=== PATIENT | male | born 1985 | race Hispanic/Latino ===

== ENCOUNTER 2018-12-26 01:47 | Emergency (ER) | payer SELFPAY ==
--- NOTE | 2018-12-26 02:35 | ER ---
Nurse's Notes [facility] Name: David Chang Age: 33 yrs Sex: Male : 1985 Arrival Date: 12/26/2018 Time: 01:52 Bed 5 Private MD: Diagnosis: Impetigo, unspecified Presentation: 12/26 02:00 Presenting complaint: Patient states: "Yesterday I started to have common colds so I cc3 took NyQuil yesterday night and DayQuil the next day. When I woke up today I noticed these red lesions on my chin and forehead which aren't itchy though". Transition of care: patient was not received from another setting of care. Onset of symptoms was December 25, 2018. Risk Assessment: Do you want to hurt yourself or someone else? Patient reports no desire to harm self or others. Initial Sepsis Screen: Does the patient meet any 2 criteria? No. Patient's initial sepsis screen is negative. Does the patient have a suspected source of infection? No. Patient's initial sepsis screen is negative. Care prior to arrival: None. 02:00 Method Of Arrival: Ambulatory cc3 02:00 Acuity: BLAYNE 4 cc3 Triage Assessment: 02:00 General: Appears in no apparent distress. comfortable, Behavior is calm, cooperative, cc3 appropriate for age. Pain: Denies pain. EENT: No signs and/or symptoms were reported regarding the EENT system. Neuro: Level of Consciousness is awake, alert, obeys commands. Cardiovascular: Denies chest pain, Capillary refill < 3 seconds in bilateral fingers Patient's skin is warm and dry. Respiratory: Airway is patent Respiratory effort is even, unlabored, Respiratory pattern is regular, symmetrical. GI: Abdomen is round non-distended, Bowel sounds present X 4 quads. Abd is soft and non tender X 4 quads. : No signs and/or symptoms were reported regarding the genitourinary system. Derm: Skin is intact, is healthy with good turgor, Skin is pink, warm \\T\\ dry. normal, Rash noted that is papular, red, on chin, forehead, chest. Musculoskeletal: Circulation, motion, and sensation intact. Range of motion: intact in all extremities. Historical: - Allergies: 02:00 No Known Allergies; cc3 - Home Meds: 02:00 lisinopril 10 mg Oral tab 1 tab once daily [Active]; amlodipine 5 mg tab 1 tab once cc3 daily [Active]; losartan 100 mg oral tab 1 tab once daily [Active]; - PMHx: 02:00 Hypertension; cc3 - PSHx: 02:00 back surgery; cc3 - Immunization history:: Adult Immunizations not up to date. - Social history:: Smoking status: Patient uses tobacco products, denies chronic smoking, but will smoke occasionally. - Ebola Screening: : No symptoms or risks identified at this time. Screenin:00 Abuse screen: Denies threats or abuse. Denies injuries from another. Nutritional cc3 screening: No deficits noted. Tuberculosis screening: No symptoms or risk factors identified. Fall Risk Ambulatory Aid- None/Bed Rest/Nurse Assist (0 pts). Gait- Normal/Bed Rest/Wheelchair (0 pts) Mental Status- Oriented to own ability (0 pts). Assessment: 02:00 General: see triage assessment. cc3 02:50 Reassessment: Patient appears in no apparent distress at this time. Patient and/or cc3 family updated on plan of care and expected duration. Pain level reassessed. Patient is alert, oriented x 3, equal unlabored respirations, skin warm/dry/pink. Dr. Mcduffie discharged the patient home with prescription given. No IV cannula in situ. Patient left ER vitally stable and ambulatory. No valuables left in the patient's room. Patient denies pain at this time. Vital Signs: 02:00 BP 138 / 88; Pulse 83; Resp 15 S; Temp 98.6(O); Pulse Ox 98% on R/A; Weight 104.33 kg cc3 (R); Height 5 ft. 3 in. (160.02 cm) (R); Pain 0/10; 02:00 Body Mass Index 40.74 (104.33 kg, 160.02 cm) cc3 ED Course: 01:52 Patient arrived in ED. es 02:00 Patient has correct armband on for positive identification. Bed in low position. Call cc3 light in reach. Pulse ox on. NIBP on. 02:00 Arm band placed on right wrist. Patient notified of wait time. cc3 02:02 Romel Mcduffie MD is Attending Physician. tw4 02:10 Kacy Bhatt is Primary Nurse. cc3 02:16 Triage completed. cc3 02:50 No provider procedures requiring assistance completed. Patient did not have IV access cc3 during this emergency room visit. Administered Medications: No medications were administered Outcome: 02:35 Discharge ordered by . tw4 02:50 Discharged to home ambulatory. cc3 02:50 Condition: stable 02:50 Discharge instructions given to patient, Instructed on discharge instructions, follow up and referral plans. medication usage, Demonstrated understanding of instructions, follow-up care, medications, Prescriptions given X 1. 02:57 Patient left the ED. cc3 Signatures: Yamilex Brady Terrence, MD MD tw4 Kacy Bhatt cc3
[2018-12-26 03:32] VITALS: BP 138/88; TEMP 98.6; O2SAT 98
--- NOTE | 2018-12-27 02:57 | EDPHYS ---
Physician Documentation [facility] Name: David Chang Age: 33 yrs Sex: Male : 1985 Arrival Date: 12/26/2018 Time: 01:52 Bed 5 Private MD: ED Physician Romel Mcduffie HPI: 12/26 07:01 This 33 yrs old Male presents to ER via Ambulatory with complaints of Lesions tw4 on body. 07:01 The patient's rash thought to be caused by an unknown cause. The rash is located on the tw4 chin. The rash can be described as patchy. Onset: The symptoms/episode began/occurred yesterday. Associated signs and symptoms: Pertinent positives: itching, Pertinent negatives: burning sensation, difficulty breathing, fever, swelling of lips, swelling of throat. Severity of symptoms: At their worst the symptoms were mild in the emergency department the symptoms are unchanged. The patient has not experienced similar symptoms in the past. Historical: - Allergies: 02:00 No Known Allergies; cc3 - Home Meds: 02:00 lisinopril 10 mg Oral tab 1 tab once daily [Active]; amlodipine 5 mg tab 1 tab once cc3 daily [Active]; losartan 100 mg oral tab 1 tab once daily [Active]; - PMHx: 02:00 Hypertension; cc3 - PSHx: 02:00 back surgery; cc3 - Immunization history:: Adult Immunizations not up to date. - Social history:: Smoking status: Patient uses tobacco products, denies chronic smoking, but will smoke occasionally. - Ebola Screening: : No symptoms or risks identified at this time. ROS: 07:01 Constitutional: Negative for fever, chills, and weight loss, Eyes: Negative for injury, tw4 pain, redness, and discharge, Cardiovascular: Negative for chest pain, palpitations, and edema, Respiratory: Negative for shortness of breath, cough, wheezing, and pleuritic chest pain, Abdomen/GI: Negative for abdominal pain, nausea, vomiting, diarrhea, and constipation, Back: Negative for injury and pain, MS/Extremity: Negative for injury and deformity. 07:01 Skin: Positive for rash. Exam: 07:01 Constitutional: This is a well developed, well nourished patient who is awake, alert, tw4 and in no acute distress. Head/Face: Normocephalic, atraumatic. Chest/axilla: Normal chest wall appearance and motion. Nontender with no deformity. No lesions are appreciated. Respiratory: Lungs have equal breath sounds bilaterally, clear to auscultation and percussion. No rales, rhonchi or wheezes noted. No increased work of breathing, no retractions or nasal flaring. Abdomen/GI: Soft, non-tender, with normal bowel sounds. No distension or tympany. No guarding or rebound. No evidence of tenderness throughout. 07:01 Skin: lesion(s), pustule(s) noted. 07:01 Skin: lesion(s), located on the chin. tw4 Vital Signs: 02:00 BP 138 / 88; Pulse 83; Resp 15 S; Temp 98.6(O); Pulse Ox 98% on R/A; Weight 104.33 kg cc3 (R); Height 5 ft. 3 in. (160.02 cm) (R); Pain 0/10; 02:00 Body Mass Index 40.74 (104.33 kg, 160.02 cm) cc3 MDM: 02:02 Patient medically screened. tw4 07:01 Differential diagnosis: impetigo, varicella. Data reviewed: vital signs, nurses notes. tw4 Counseling: I had a detailed discussion with the patient and/or guardian regarding: the historical points, exam findings, and any diagnostic results supporting the discharge/admit diagnosis. Special discussion: I discussed with the patient/guardian in detail that at this point there is no indication for admission to the hospital. It is understood, however, that if the symptoms persist or worsen the patient needs to return immediately for re-evaluation. Administered Medications: No medications were administered Disposition: 12/26/18 02:35 Discharged to Home. Impression: Impetigo, unspecified. - Condition is Stable. - Discharge Instructions: Impetigo, Adult. - Prescriptions for Bactroban 2 % Topical Ointment - Apply to affected area 1 application by TOPICAL route every 12 hours; 30 gram. - Medication Reconciliation Form, Thank You Letter, Antibiotic Education, Prescription Opioid Use form. - Follow up: Private Physician; When: Upon discharge from the Emergency Department; Reason: Recheck today's complaints, Continuance of care. - Problem is new. - Symptoms are unchanged. Signatures: Romel Mcduffie MD MD tw4 Kacy Bhatt cc3 Corrections: (The following items were deleted from the chart) 02:57 02:35 12/26/2018 02:35 Discharged to Home. Impression: Impetigo, unspecified. Condition cc3 is Stable. Forms are Medication Reconciliation Form, Thank You Letter, Antibiotic Education, Prescription Opioid Use. Follow up: Private Physician; When: Upon discharge from the Emergency Department; Reason: Recheck today's complaints, Continuance of care. Problem is new. Symptoms are unchanged. tw4
== END 2018-12-26 02:57 | disposition home or self-care (01) ==
LOC: ER 01:47
DX: L01.00 Impetigo, unspecified (principal); I10 Essential (primary) hypertension; Z72.0 Tobacco use
CPT/HCPCS: 99283

== ENCOUNTER 2022-10-25 23:13 | Emergency (ER) | payer SELFPAY ==
--- OUTSIDE RECORDS SUMMARY | 2022-10-25 23:16 | XMS REPORT | Continuity of Care Document ---
:1985 Author Organization [facility] t Address [address] [place] [address] Care Team Providers Name Role Phone Unavailable Unavailable Unavailable Problems This patient has no known problems. Allergies, Adverse Reactions, Alerts This patient has no known allergies or adverse reactions. Medications This patient has no known medications. Procedures This patient has no known procedures. Encounters Start End Encounter Admission Attending Care Care Encounter Source Date/Time Date/Time Type Type Clinicians Facility Department ID 2022-05-29 2022-05-29 Outpatient [facility] [id number] Hung 15:58:44 15:58:44 [id number] F Homar 2021-12-04 2021-12-[address] [facility] [id number] Hung 10:59:36 10:59:36 1025 F Homar Results Test Description Test Time Test Comments Results Result Comments Source LIPID PANEL 2021-12-05 05:20:02 Test Item Value Reference Range Interpretation Comme nts CHOLESTEROL (test code = 2210) 392 MG/DL <200 H TRIGLYCERIDES (test code = 2232) 211 MG/DL <150 H HDL CHOLESTEROL (test code = 35 MG/DL >39 L 2220) CALC LDL CHOL (test code = 2237) 317 MG/DL <100 H NOTE: CALCULATED LDL IS BASED ON YESI-COOPER METHOD WHICHINCLUDES A DJUSTABLE TRIGLYCERIDE:VL DL CHOLESTEROL RATIO.THIS FACT OR VARIES BY MEASURED TRIGLY CERIDE AND NON-HDLCHOLESTE ROL CONCENTRATIONS WITH INCREASED CALCULATED LDL SEENIN HIGHER T RIGLYCERIDE OR LOWER NON-HDL S PECIMENS. FOR MOREINFORMATION , SEE CLIENT ANNOUNCEMENT AT [email or web address] RATIO LDL/HDL (test code = 9.06 RATIO <3.55 H 2237) COMPREHENSIVE METABOLIC [id number] 05:20:02 Test Item Value Reference Range Interpretation Comments GLUCOSE (test code = 94 MG/DL 70-99 2216) BUN (test code = 12 MG/DL 6-20 2207) CREATININE (test 0.94 MG/DL 0.80-1.40 code = 221) eGFR (2020 CKD-EPI) 108 >60 (test code = 15996) ML/MIN/1.73 CALC BUN/CREAT (test 13 RATIO 6-28 code = 2235) SODIUM (test code = 138 MEQ/L 290-934 2001) POTASSIUM (test code 4.4 MEQ/L 3.5-5.4 = 2227) CHLORIDE (test code 99 MEQ/L 95-107 = 2214) CARBON DIOXIDE (test 23 MEQ/L 19-31 code = 220) CALCIUM (test code = 9.8 MG/DL 8.5-10.5 2208) PROTEIN, TOTAL (test 7.4 G/DL 6.1-8.3 code = 2228) ALBUMIN (test code = 4.5 G/DL 3.5-5.2 2200) CALC GLOBULIN (test 2.9 G/DL 1.9-3.7 code = 2240) CALC A/G RATIO (test 1.6 RATIO 1.0-2.6 code = 223) BILIRUBIN, TOTAL 0.6 MG/DL See_Comment [Automated message] (test code = 2207) The syste m which generated this result transmitted ref erence range: <=1.2. T he reference range was not used to int erpret this result as normal/abnormal . ALKALINE PHOSPHATASE 72 U/L 40-117 (test code = 2204) AST (test code = 53 U/L 9-50 H 2217) ALT (test code = 109 U/L 5-50 H UNLESS OTH ERWISE 2218) INDICATED, ALL TESTING PERFORM [facility] [address] [place] [place] [address] [facility] DIRECTOR: YONI GOLDBERG M.D. CLIA NUMBER [id number] CAP ACCREDITATION N O. [id number]
[2022-10-25 23:56] LABS: Absolute Lymphocytes (CBC) 2.6 K/uL (0.7-4.9); Hematocrit 41.2 % (39.6-49.0); Lymphocytes % 39.8 % (15.3-44.8); MCV 80.9 fL (80-100); MPV 8.1 fL (7.6-11.3); Platelets 255 thou/uL (152-406); RBC Red Blood Cell Count 5.09 M/uL (4.33-5.43)
[2022-10-26 00:09] LABS: Protime INR 1.01
[2022-10-26 00:15] LABS: Albumin 3.5 g/dL (3.4-5.0); Bilirubin Total 0.3 mg/dL (0.2-1.0); Potassium 3.7 mEq/L (3.5-5.1); Protein, Total 6.9 g/dL (6.4-8.2)
--- NOTE | 2022-10-26 00:25 | ER ---
Nurse's Notes [facility] Name: David Chang Age: 37 yrs Sex: Male : 1985 Arrival Date: 10/25/2022 Time: 23:13 Bed 15 Private MD: Diagnosis: Epistaxis Presentation: 10/25 23:23 Initial Sepsis Screen: Does the patient meet any 2 criteria? No. Patient's initial ha1 sepsis screen is negative. Does the patient have a suspected source of infection? No. Patient's initial sepsis screen is negative. Risk Assessment: Do you want to hurt yourself or someone else? Patient reports no desire to harm self or others. Onset of symptoms was October 25, 2022. 23:23 Acuity: BLAYNE 3 [facility] 23:23 Chief complaint: Patient states: Today I have been having nose bleed. the bleeding has ha1 stopped but I wanted to have it checked because it has happened before. Also, I feel a little chest pressure. 23:47 Ebola Screen: No symptoms or risks identified at this time. [facility] 23:47 Method Of Arrival: Ambulatory [facility] 10/26 00:39 Coronavirus screen: Vaccine status:. [facility] Triage Assessment: 10/25 23:23 General: Appears uncomfortable, Behavior is cooperative. Pain: Complains of pain in ha1 chest Pain does not radiate. Pain currently is 2 out of 10 on a pain scale. Quality of pain is described as pressure, Pain began 2-3 days ago. EENT: Reports Nose bleeding . Neuro: Level of Consciousness is awake, alert, obeys commands, Oriented to person, place, time, situation. Cardiovascular: Patient's skin is warm and dry. Respiratory: Airway is patent Respiratory effort is even, unlabored, Respiratory pattern is regular, symmetrical. Derm: Skin is pink, warm \T\ dry. Musculoskeletal: Circulation, motion, and sensation intact. Historical: - Allergies: 23:49 No Known Allergies; ha1 - Home Meds: 23:49 lisinopril 10 mg Oral tab 1 tab once daily [Active]; ha1 - PMHx: 23:49 Hypertension; high cholesterol; ha1 - Immunization history:: Adult Immunizations up to date. - Social history:: Smoking status: Reported history of juuling and/or vaping. Screenin:23 [facility] ED Fall Risk Assessment (Adult) History of falling in the last 3 months, ha1 including since admission No falls in past 3 months (0 pts) Confusion or Disorientation No (0 pts) Intoxicated or Sedated No (0 pts) Impaired Gait No (0 pts) Mobility Assist Device Used No (0 pt) Altered Elimination No (0 pt) Score/Fall Risk Level 0 - 2 = Low Risk. 23:52 Abuse screen: Denies threats or abuse. Denies injuries from another. Nutritional ha1 screening: No deficits noted. Tuberculosis screening: No symptoms or risk factors identified. Assessment: 10/26 00:39 Reassessment: Patient and/or family updated on plan of care and expected duration. Pain ha1 level reassessed. Patient is alert, oriented x 3, equal unlabored respirations, skin warm/dry/pink. Vital Signs: 10/25 23:23 BP 156 / 106; Pulse 67; Resp 17 S; Temp 97.9; Pulse Ox 99% on R/A; Weight 112 kg; ha1 Height 5 ft. 7 in. ; 10/26 00:30 BP 150 / 98; Pulse 65; Resp 17 S; Pulse Ox 99% on R/A; ha1 10/25 23:23 Body Mass Index 38.67 (112.00 kg, 170.18 cm) ha1 ED Course: 10/25 23:17 Patient arrived in ED. es 23:21 Mehrdad Vo MD is Attending Physician. rt 23:23 Arm band placed on right wrist. ha1 23:23 Patient has correct armband on for positive identification. Placed in gown. Bed in low ha1 position. Call light in reach. Side rails up X 1. 23:47 Belen Narayan RN is Primary Nurse. ha1 23:49 Triage completed. ha1 23:50 Inserted saline lock: 22 gauge in right antecubital area, using aseptic technique. ha1 Blood collected. Inserted by SKYLER Greco. 10/26 00:24 Jo Ann Isidro MD is Referral Physician. rt 00:37 No provider procedures requiring assistance completed. IV discontinued, intact, ha1 bleeding controlled, No redness/swelling at site. Pressure dressing applied. 00:39 Provided Education on: follow up with Dr. Isidro. ha1 Administered Medications: No medications were administered Medication: 00:38 VIS not applicable for this client. ha1 Outcome: 00:24 Discharge ordered by . rt 00:38 Discharged to home ambulatory. ha1 00:38 Condition: stable 00:38 Discharge instructions given to patient, Instructed on discharge instructions, follow up and referral plans. Demonstrated understanding of instructions, follow-up care. 00:41 Patient left the ED. ha1 Signatures: Yamilex Brady Heidy, RN RN ha1 Mehrdad Vo MD MD rt
--- NOTE | 2022-10-26 00:25 | EDPHYS ---
Physician Documentation [facility] Name: David Chang Age: 37 yrs Sex: Male : 1985 Arrival Date: 10/25/2022 Time: 23:13 Bed 15 Private MD: ED Physician Mehrdad Vo HPI: 10/25 23:44 This 37 yrs old Male presents to ER via Unassigned with complaints of SPITING rt UP BLOOD. 23:44 Patient presents to the ED with epistaxis. He has had intermittent epistaxis for the rt past year, has not had a work-up for this. He states that the bleeding was worse today. He has since resolved. Denies any difficulty breathing, cough. Denies other acute complaints at this time, symptoms are mild in severity, no other aggravating or alleviating factors.. Historical: - Allergies: 23:49 No Known Allergies; ha1 - Home Meds: 23:49 lisinopril 10 mg Oral tab 1 tab once daily [Active]; ha1 - PMHx: 23:49 Hypertension; high cholesterol; ha1 - Immunization history:: Adult Immunizations up to date. - Social history:: Smoking status: Reported history of juuling and/or vaping. ROS: 23:44 Constitutional: Negative for fever, chills, and weight loss, Cardiovascular: Negative rt for chest pain, palpitations, and edema, Respiratory: Negative for shortness of breath, cough, wheezing, and pleuritic chest pain, Abdomen/GI: Negative for abdominal pain, nausea, vomiting, diarrhea, and constipation, MS/Extremity: Negative for injury and deformity, Skin: Negative for injury, rash, and discoloration, Neuro: Negative for headache, weakness, numbness, tingling, and seizure, Psych: Negative for depression, anxiety, suicide ideation, homicidal ideation, and hallucinations. 23:44 ENT: Positive for nose bleed, Negative for sore throat. Exam: 23:44 Constitutional: This is a well developed, well nourished patient who is awake, alert, rt and in no acute distress. Head/Face: Normocephalic, atraumatic. Neck: Trachea midline, no thyromegaly or masses palpated, and no cervical lymphadenopathy. Supple, full range of motion without nuchal rigidity, or vertebral point tenderness. No Meningismus. Chest/axilla: Normal chest wall appearance and motion. Nontender with no deformity. No lesions are appreciated. Cardiovascular: Regular rate and rhythm with a normal S1 and S2. No gallops, murmurs, or rubs. Normal PMI, no JVD. No pulse deficits. Respiratory: Lungs have equal breath sounds bilaterally, clear to auscultation and percussion. No rales, rhonchi or wheezes noted. No increased work of breathing, no retractions or nasal flaring. Abdomen/GI: Soft, non-tender, with normal bowel sounds. No distension or tympany. No guarding or rebound. No evidence of tenderness throughout. Skin: Warm, dry with normal turgor. Normal color with no rashes, no lesions, and no evidence of cellulitis. MS/ Extremity: Pulses equal, no cyanosis. Neurovascular intact. Full, normal range of motion. Neuro: Awake and alert, GCS 15, oriented to person, place, time, and situation. Cranial nerves II-XII grossly intact. Motor strength 5/5 in all extremities. Sensory grossly intact. Cerebellar exam normal. Normal gait. Psych: Awake, alert, with orientation to person, place and time. Behavior, mood, and affect are within normal limits. 23:44 ENT: Dried blood in the left nare, no active bleeding, right nares clear. 23:44 ECG was reviewed by the Attending Physician. Vital Signs: 23:23 BP 156 / 106; Pulse 67; Resp 17 S; Temp 97.9; Pulse Ox 99% on R/A; Weight 112 kg; ha1 Height 5 ft. 7 in. ; 10/26 00:30 BP 150 / 98; Pulse 65; Resp 17 S; Pulse Ox 99% on R/A; ha1 10/25 23:23 Body Mass Index 38.67 (112.00 kg, 170.18 cm) ha MDM: 10/25 23:24 Patient medically screened. rt 10/26 00:25 Differential Diagnosis Thrombocytopenia, epistaxis, clotting factor abnormalities. Data rt reviewed: vital signs, nurses notes, lab test result(s), EKG. Test considered but Not performed: CT: No trauma, CT scan of. Counseling: I had a detailed discussion with the patient and/or guardian regarding the historical points, exam findings, and any diagnostic results supporting the discharge/admit diagnosis, the presence of at least one elevated blood pressure reading (>120/80) during this emergency department visit, lab results, the need for outpatient follow up. 10/25 23:35 Order name: CBC with Diff; Complete Time: 00:16 rt 10/25 23:35 Order name: CMP; Complete Time: 00:16 rt 10/25 23:35 Order name: PT-INR; Complete Time: 00:16 rt 10/25 23:35 Order name: Ptt, Activated; Complete Time: 00:16 rt 10/25 23:35 Order name: EKG; Complete Time: 23:36 rt 10/25 23:35 Order name: EKG - Nurse/Tech; Complete Time: 23:47 rt EC10/25 22:44 Rate is 57 beats/min. Rhythm is regular, 1st Degree Block with No ectopy. QRS [place] is rt Normal. AL interval is normal. QRS interval is normal. QT interval is normal. No Q waves. T waves are Normal. No ST changes noted. Interpreted by me. Administered Medications: No medications were administered Disposition Summary: 10/26/22 00:24 Discharge Ordered Location: Home rt Problem: an ongoing problem rt Symptoms: are resolved rt Condition: Stable rt Diagnosis - Epistaxis rt Followup: rt - With: Jo Ann Isidro MD - When: 5 - 6 days - Reason: Discharge Instructions: - Discharge Summary Sheet rt - Nosebleed, Adult rt Forms: - Medication Reconciliation Form rt - Thank You Letter rt - Antibiotic Education rt - Prescription Opioid Use rt - Patient Portal Instructions rt - Leadership Thank You Letter rt Signatures: Dispatcher [employer] Belen Padilla RN RN ha1 Mehrdad Vo MD MD rt
[2022-10-26 00:56] VITALS: TEMP 97.9; O2SAT 99
[2022-10-26 00:58] VITALS: BP 150/98
--- NOTE | 2022-10-28 19:10 | EKG ---
Test Date: 2022-10-25 Test Time: 23:38:01 Drafter Castings: JANE MEASUREMENT RESULTS: Intervals: Rate: 57 OR: 210 QRSD: 96 QT: 414 QTc: 402 [place]: P: 57 OR: 210 QRS: 3 T: 13 INTERPRETIVE STATEMENTS: Sinus bradycardia with 1st degree AV block Otherwise normal ECG Compared to ECG 06/20/2015 16:49:33 First degree AV block now present Electronically Signed On 10-28-22 19:06:35 CDT by Wilfrido Dorado
== END 2022-10-26 00:41 | disposition home or self-care (01) ==
LOC: ER 23:13
DX: R04.0 Epistaxis (principal)
CPT/HCPCS: 36415; 80053; 85025; 85610; 85730; 93005; 99283

== ENCOUNTER 2023-06-02 19:06 | Emergency (ER) | payer SELFPAY ==
--- OUTSIDE RECORDS SUMMARY | 2023-06-02 19:09 | XMS REPORT | Continuity of Care Document ---
Author Name Unknown Address [address] [facility] [address] [place] [id number] [facility] thconnect Address [address] [facility] [address] [place] [address] Care Team Providers Care Retail Warehouse Supervisor Name Role Phone Unavailable Unavailable Unavailable Encounters Start Date/Time End Date/Time Encounter Type Admission Type Attending Clinicians Care Facility Care Department Encounter ID Source 2022-12-03 13:34:16 2022-12-03 13:34:16 Outpatient [facility] S[facility] [id number] 2022-11-13 09:35:49 2022-11-13 09:35:49 Outpatient [facility] S[facility] [id number] 2022-05-29 15:58:44 2022-05-29 15:58:44 Outpatient SFA SFA [id number] 2021-12-04 10:59:36 2021-12-04 10:59:36 Outpatient SFA SFA [id number] Results Test Description Test Time Test Comments Results Result Co mments Source LIPID [id number] 05:04:38* Test Item Value Reference Range Interpretation Comme nts CHOLESTEROL (test code = 2210) 377 MG/DL <200 H TRIGLYCERIDES (test code = 2232) 326 MG/DL <150 H HDL CHOLESTEROL (test code = 2220) 35 MG/DL >39 L CALC LDL CHOL (test code = 2237) 287 MG/DL <100 H NOTE: CALCULATED LDL IS BASED ON YESI-COOPER METHOD WHICHINCLUDES ADJUSTABLE TRIGLYCERIDE:VLDL CHOLESTEROL RATIO.THIS FACTOR VARIES BY MEASURED TRIGLYCERIDE AND NON-HDLCHOLESTEROL CONCENTRATIONS WITH INCREASED CALCULATED LDL SEENIN HIGHER TRIGLYCERIDE OR LOWER NON-HDL SPECIMENS. FOR MOREINFORMATION, SEE CLIENT ANNOUNCEMENT AT [email or web address] [email or web address] RATIO LDL/HDL (test code = 223) 8.20 RATIO <3.55 H COMPREHENSIVE METABOLIC [id number] 05:04:38* Test Item Value Reference Range Interpretation Comme nts GLUCOSE (test code = 7) 96 MG/DL 70-99 BUN (test code = 2207) 9 MG/DL 6-20 CREATININE (test code = 2214) 1.01 MG/DL 0.80-1.40 eGFR (2020 CKD-EPI) (test co de = 07056) 98 ML/MIN/1.73 >60 CALC BUN/CREAT (test code = 2235) 9 RATIO 6-28 SODIUM (test code = 223) 140 MEQ/L 133-146 POTASSIUM (test code = 222) 4.4 MEQ/L 3.5-5.4 CHLORIDE (test code = 2215) 101 MEQ/L 95-107 CARBON DIOXIDE (test code = 6) 24 MEQ/L 19-31 CALCIUM (test code = 220) 9.6 MG/DL 8.5-10.5 PROTEIN, TOTAL (test code = 222) 7.4 G/DL 6.1-8.3 ALBUMIN (test code = 2201) 4.7 G/DL 3.5-5.2 CALC GLOBULIN (test code = 2240) 2.7 G/DL 1.9-3.7 CALC A/G RATIO (test code = 2234) 1.7 RATIO 1.0-2.6 BILIRUBIN, TOTAL (test code = 2206) 0.7 MG/DL <=1.2 ALKALINE PHOSPHATASE (test code = 4) 81 U/L 40-117 AST (test code = 2218) 56 U/L 9-50 H ALT (test code = 2219) 125 U/L 5-50 H CBC W/AUTO DIFF WITH [id number] 03:36:02* Test Item Value Reference Range Interpretation Comme nts WBC (test code = 1001) 5.8 K/UL 3.5-11.0 RBC (test code = 1002) 5.70 M/UL 4.50-6.10 HEMOGLOBIN (test code = 1003) 15.5 G/DL 13.5-17.0 HEMATOCRIT (test code = 1004) 46.1 % 40.0-51.0 MCV (test code = 1005) 80.9 fL 80.0-99.0 MCH (test code = 1006) 27.2 PG 25.0-33.0 MCHC (test code = 1007) 33.6 G/DL 31.0-36.0 RDW (test code = 1038) 12.9 % 11.5-15.0 NEUTROPHILS (test code = 1008) 50.0 % LYMPHOCYTES (test code = 1010) 38.8 % MONOCYTES (test code = 1011) 7.5 % EOSINOPHILS (test code = 1012) 2.9 % BASOPHILS (test code = 1013) 0.3 % IMMATURE GRANULOCYTES (test code = 1036) 0.5 % NUCLEATED RBCS (test code = 1065) 0.0 /100 WBC'S See_Comment [Automated messa ge] The system which generated this result transmitted reference range: 0.0. The reference range was not used to interpret this result as normal/abnormal. PLATELET COUNT (test code = 1015) 304 K/UL 130-400 ABSOLUTE NEUTROPHILS (test code = 1066) 2.91 K/UL 1.50-7.50 ABSOLUTE LYMPHOCYTES (test code = 1067) 2.26 K/UL 1.00-4.00 ABSOLUTE MONOCYTES (test code = 1068) 0.44 K/UL 0.20-1.00 ABSOLUTE EOSINOPHILS (test code = 1040) 0.17 K/UL 0.00-0.50 ABSOLUTE BASOPHILS (test code = 1069) 0.02 K/UL 0.00-0.20 ABS IMMATURE GRANULOCYTES (test code = 1020) 0.03 K/UL 0.00-0.10 ABS NUCLEATED RBCS (test code = 63356) 0.00 K/UL 0.00-0.11 PROTHROMBIN TIME (PT)2022-11-14 02:49:27* Test Item Value Reference Range Interpretation Comme nts PROTHROMBIN TIME (PT) (test code = 1402) 13.1 SECONDS 12.5-14.7 INR (test code = 36537) 1.0 SEE BELOW CURRENT RECOMMENDATIONS ARE FOR AN INR OF 2.0-3.0 FOR ALL PATIENTS ON VITAMIN K ANTAGONISTS, EXCEPT THOSE WITH PROSTHETIC HEART VALVES, FOR WHOM INR OF 2.5-3.5 IS RECOMMENDED. UNLESS OTHERWISE INDICATED, ALL TESTING PERFORMED AT [facility] [address] [place] [address] IRRIGATION FLUME LAYER: JASKARAN WALKER M.D. CLIA NUMBER [id number] [facility] [place]. [id number] LIPID [id number] 05:20:02* Test Item Value Reference Range Interpretation Comme nts CHOLESTEROL (test code = 2210) 392 MG/DL <200 H TRIGLYCERIDES (test code = 2232) 211 MG/DL <150 H HDL CHOLESTEROL (test code = 2220) 35 MG/DL >39 L CALC LDL CHOL (test code = 2237) 317 MG/DL <100 H NOTE: CALCULATED LDL IS BASED ON YESI-COOPER METHOD WHICHINCLUDES ADJUSTABLE TRIGLYCERIDE:VLDL CHOLESTEROL RATIO.THIS FACTOR VARIES BY MEASURED TRIGLYCERIDE AND NON-HDLCHOLESTEROL CONCENTRATIONS WITH INCREASED CALCULATED LDL SEENIN HIGHER TRIGLYCERIDE OR LOWER NON-HDL SPECIMENS. FOR MOREINFORMATION, SEE CLIENT ANNOUNCEMENT AT [email or web address] [email or web address] RATIO LDL/HDL (test code = 2238) 9.06 RATIO <3.55 H COMPREHENSIVE METABOLIC [id number] 05:20:02* Test Item Value Reference Range Interpretation Comme nts GLUCOSE (test code = 2217) 94 MG/DL 70-99 BUN (test code = 2208) 12 MG/DL 6-20 CREATININE (test code = 2214) 0.94 MG/DL 0.80-1.40 eGFR (2020 CKD-EPI) (test code = 14104) 108 ML/MIN/1.73 >60 CALC BUN/CREAT (test code = 2235) 13 RATIO 6-28 SODIUM (test code = 223) 138 MEQ/L 133-146 POTASSIUM (test code = 2228) 4.4 MEQ/L 3.5-5.4 CHLORIDE (test code = 2215) 99 MEQ/L 95-107 CARBON DIOXIDE (test code = 2206) 23 MEQ/L 19-31 CALCIUM (test code = 2209) 9.8 MG/DL 8.5-10.5 PROTEIN, TOTAL (test code = 222) 7.4 G/DL 6.1-8.3 ALBUMIN (test code = 220) 4.5 G/DL 3.5-5.2 CALC GLOBULIN (test code = 2240) 2.9 G/DL 1.9-3.7 CALC A/G RATIO (test code = 2234) 1.6 RATIO 1.0-2.6 BILIRUBIN, TOTAL (test code = 2207) 0.6 MG/DL See_Comment [Automated me ssage] The system which generated this result transmitted reference range: <=1.2. The reference range was not used to interpret this result as normal/abnormal. ALKALINE PHOSPHATASE (test code = 2204) 72 U/L 40-117 AST (test code = 2218) 53 U/L 9-50 H ALT (test code = 2219) 109 U/L 5-50 H UNLESS OTHERWISE INDICATED, [facility] [address] [place] [address] IRRIGATION FLUME LAYER: YONI GOLDBERG M.D. [place] NUMBER [id number] [facility] [place]. [id number]
--- NOTE | 2023-06-02 20:12 | RAD REPORT ---
EXAM DESCRIPTION: CT - Head Brain Wo Cont - 06/02/2023 8:01 pm CLINICAL HISTORY: HEADACHE Headache, drowsiness COMPARISON: HEAD BRAIN W O CONTRAST dated 10/29/2012; HEAD BRAIN W O CONTRAST dated 03/26/2007 TECHNIQUE: All CT scans are performed using dose optimization technique as appropriate and may inclu de automated exposure control or mA/KV adjustment according to patient size. FINDINGS: No intracranial hemorrhage, hydrocephalus or extra-axial fluid collection.No areas of brai n edema or evidence of midline shift. The paranasal sinuses and mastoids are clear. The calvarium is intact. IMPRESSION: No acute intracranial abnormality.
--- NOTE | 2023-06-02 20:16 | RAD REPORT ---
EXAM DESCRIPTION: RAD - Chest Single View - 06/02/2023 8:09 pm CLINICAL HISTORY: SOB Chest pain. COMPARISON: Chest Single View dated 06/20/2015 FINDINGS: Portable technique limits examination quality. The lungs are grossly clear. The heart is normal in size. No displaced fractures. IMPRESSION: No acute intrathoracic process suspected.
[2023-06-02 20:48] LABS: Absolute Basophils 0.1 K/uL (0-0.5); Absolute Eosinophils 0.1 K/uL (0-0.5); Absolute Lymphocytes (CBC) 1.9 K/uL (0.7-4.9); Absolute Monocytes 0.5 K/uL (0.1-1.3); Absolute Neutrophil 4.7 K/uL (1.8-8.0); Basophils % 0.7 % (0-1.3); Eosinophils % 1.8 % (0-4.4); Hematocrit 51.7 % (39.6-49.0); Hemoglobin 16.9 g/dL (13.6-17.9); Lymphocytes % 26.4 % (15.3-44.8); MCH 26.2 pg (27.0-35.0); MCHC 32.6 g/dL (32.0-36.0); MCV 80.3 fL (80-100); MPV 8.9 fL (7.6-11.3); Monocytes % 6.6 % (3.3-12.3); Neutrophils % 64.5 % (41.7-73.7); Nucleated Red Blood Cells % 0.1 % (0-0); Platelets 309 thou/uL (152-406); RBC Red Blood Cell Count 6.44 M/uL (4.33-5.43); Red Cell Distribution Width 14.2 % (12.1-15.2)
[2023-06-02 20:57] LABS: PT Prothrombin Time 10.3 SECONDS (9.5-12.5); Protime INR 0.93
[2023-06-02] MEDS ORDERED: KETOROLAC 30 MG/ML INJ ONE (20:59)
[2023-06-02] MEDS ORDERED: METOCLOPRAMIDE 10 MG/2mL INJ ONE (21:00)
[2023-06-02] MEDS ORDERED: DIPHENHYDRAMINE 50 MG/ML VIAL ONE (21:00)
[2023-06-02] MEDS ORDERED: NA CHLORIDE 0.9% 1,000 ML ONE (21:00)
[2023-06-02 21:07] LABS: Anion Gap 9.8 mEq/L (5.0-15.0); Troponin High Sensitivity 31.5 pg/mL (<58.9)
[2023-06-02 21:12] LABS: Potassium 3.8 mEq/L (3.5-5.1)
--- NOTE | 2023-06-02 23:29 | EDPHYS ---
Physician Documentation [facility] Name: David Chang Age: 38 yrs Sex: Male : 1985 Arrival Date: 06/02/2023 Time: 19:06 Bed 18 Private MD: ED Physician Moreno Fisher HPI: 06/01 19:28 This 38 yrs old Male presents to ER via Ambulatory with complaints of cp Headache, Shortness Of Breath. 19:28 The patient complains of pain to the top of head. The patient describes the headache as cp aching, constant. Onset: The symptoms/episode began/occurred 3 day(s) ago. 19:28 Associated signs and symptoms: Pertinent positives: shortness of breath, intermittent cp chest pain, Pertinent negatives: fever, neck stiffness, vision changes, vomiting. Severity of symptoms: in the emergency department the pain is unchanged, despite home interventions. Patient reports PMHX significant for HTN and hyperlipidemia. On supplemental testosterone treatment and in past side effect of testosterone injections was elevated RBCs which caused similar headache. Patient concerned red blood cell count elevated. In the past donated blood which relieved headache. Historical: - Allergies: 19:26 No Known Allergies; jb4 - Home Meds: 19:26 lisinopril 10 mg Oral tab 1 tab once daily [Active]; jb4 - PMHx: 19:26 High Cholesterol; Hypertension; jb4 - PSHx: 19:26 lower back; jb4 - Immunization history:: Adult Immunizations up to date. - Infectious Disease History:: Denies. - Social history:: Smoking status: Patient denies any tobacco usage or history of. ROS: 19:30 Constitutional: Negative for body aches, chills, fever, poor PO intake, cp 19:30 Cardiovascular: Positive for chest pain, Negative for edema, palpitations, cp 19:30 Respiratory: Positive for shortness of breath, Negative for cough, wheezing, 19:30 Eyes: Negative for injury, pain, redness, and discharge, cp 19:30 Abdomen/GI: Negative for abdominal pain, vomiting, diarrhea, constipation, 19:30 : Negative for urinary symptoms, cp 19:30 Neuro: Positive for headache, Negative for dizziness, numbness, syncope, near syncope, weakness, 19:30 All other systems are negative, Exam: 19:35 Constitutional: The patient appears in no acute distress, alert, awake, cp non-diaphoretic, non-toxic, well developed, well nourished, 19:35 Head/Face: Normocephalic, atraumatic. cp 19:35 Eyes: Periorbital structures: appear normal, Pupils: equal, round, and reactive to cp light and accomodation, Extraocular movements: intact throughout, Conjunctiva: normal, no exudate, no injection, Sclera: no appreciated abnormality, Lids and lashes: appear normal, bilaterally, 19:35 ENT: External ear(s): are unremarkable, Nose: is normal, Mouth: Lips: moist, Oral mucosa: pink and intact, moist, Posterior pharynx: Airway: no evidence of obstruction, patent, 19:35 Neck: ROM/movement: is normal, is supple, without pain, no range of motions limitations, 19:35 Chest/axilla: Inspection: normal, 19:35 Cardiovascular: Rate: normal, Rhythm: regular, Edema: is not appreciated, JVD: is not appreciated, 19:35 Respiratory: the patient does not display signs of respiratory distress, Respirations: normal, no use of accessory muscles, no retractions, labored breathing, is not present, Breath sounds: are clear throughout, no decreased breath sounds, no stridor, no wheezing, 19:35 Abdomen/GI: Inspection: abdomen appears normal, Palpation: abdomen is soft and non-tender, in all quadrants, 19:35 Back: pain, is absent, ROM is normal, cp 19:35 Neuro: Orientation: to person, place \T\ time. Mentation: is normal, Motor: moves all fours, strength is normal, Sensation: is normal, 19:48 ECG was reviewed by the Attending Physician. cp Vital Signs: 19:22 BP 164 / 103; Pulse 87; Resp 16; Temp 97.1(TE); Pulse Ox 100% on R/A; Weight 106.59 kg jb4 (R); Height 5 ft. 7 in. (R); Pain 6/10; 20:31 BP 148 / 92; Pulse 76; Resp 17; Pulse Ox 100% ; jj7 21:30 BP 156 / 94; Pulse 74; Resp 16; Pulse Ox 98% ; Pain 0/10; jj7 22:40 BP 144 / 91; Pulse 67; Resp 16; Pulse Ox 99% ; Pain 0/10; jj7 23:30 BP 150 / 99; Pulse 70; Resp 21; Temp 98.3; Pulse Ox 98% ; Pain 0/10; jj7 19:22 Body Mass Index 36.80 (106.59 kg, 170.18 cm) 4 19:22 Pain Scale: Adult jb4 21:30 Pain Scale: Adult jj7 22:40 Pain Scale: Adult jj7 23:30 Pain Scale: Adult jj7 MDM: 19:19 Patient medically screened. cp 20:00 Differential diagnosis: meningoencephalitis, migraine, neoplasm, subarachnoid bleed, cp tension headache. 23:29 Data reviewed: vital signs, nurses notes, lab test result(s), EKG, radiologic studies, cp CT scan, plain films. 06/01 19:29 Order name: Basic Metabolic Panel; Complete Time: 22:02 cp 06/01 22:02 Interpretation: Normal except: NA 135; GFR 85. cp 06/01 19:29 Order name: CBC with Diff; Complete Time: 22:02 cp 06/01 22:02 Interpretation: Normal except: RBC 6.44; HCT 51.7; MCH 26.2. cp 06/01 19:29 Order name: Magnesium; Complete Time: 22:02 cp 06/01 19:29 Order name: PT-INR; Complete Time: 22:02 cp 06/01 19:29 Order name: Troponin HS; Complete Time: 22:02 cp 06/01 22:02 Interpretation: Reviewed. cp 06/01 22:04 Order name: Troponin High Sensitivity: 3 hr repeat; Complete Time: 23:29 cp 06/01 19:29 Order name: CT Head Brain wo Cont; Complete Time: 20:41 cp 06/01 19:29 Order name: XRAY Chest (1 view); Complete Time: 20:41 cp 06/01 19:29 Order name: Cardiac monitoring; Complete Time: 20:10 cp 06/01 19:29 Order name: EKG - Nurse/Tech; Complete Time: 20:10 cp 06/01 19:29 Order name: IV Saline Lock; Complete Time: 21:06 cp 06/01 19:29 Order name: Labs collected and sent; Complete Time: 20:44 cp 06/01 19:29 Order name: O2 Per Protocol; Complete Time: 20:44 cp 06/01 19:29 Order name: O2 Sat Monitoring; Complete Time: 20:45 cp 06/01 19:29 Order name: Blood Pressure Recheck; Complete Time: 20:44 cp EC:48 Rate is 86 beats/min. Rhythm is regular. PA interval is normal. QRS interval is normal. cp QT interval is normal. T waves are Inverted in leads III, aVR. Interpreted by me. Reviewed by me. Administered Medications: 21:05 Drug: Ketorolac IVP 15 mg IVP once Route: IVP; Site: right hand; jj7 21:48 Follow up: Response: Pain is decreased jj7 21:06 Drug: metoCLOPramide IVP 10 mg IVP once; over 1 to 2 minutes Route: IVP; Site: right [facility] hand; 21:49 Follow up: Response: Marked relief of symptoms; Pain is decreased jj7 21:06 Drug: diphenhydrAMINE IVP 25 mg IVP once Route: IVP; Site: right hand; jj7 21:49 Follow up: Response: Marked relief of symptoms; Pain is decreased jj7 21:06 Drug: NS 0.9% IV 1000 ml IV at 999 ml/hr Per protocol; 1000 mL bolus Route: IV; Rate: jj7 999 ml/hr; Site: right hand; 22:14 Follow up: IV Status: Completed infusion jj7 Disposition: 06/02 09:02 Co-signature as Attending Physician, Moreno Fisher MD I reviewed the patient's care rn provided by the Advanced Practice Provider and agree with the diagnosis and treatment plan. Disposition Summary: 06/02/23 23:28 Discharge Ordered Notes: Location: Home cp Problem: new cp Symptoms: have improved cp Condition: Stable cp Diagnosis - Headache cp - Chest pain, unspecified cp - Hypertensive heart disease without heart failure cp Followup: cp - With: Wilfrido Dorado MD - When: 2 - 3 days - Reason: Recheck today's complaints Discharge Instructions: - Discharge Summary Sheet cp - Nonspecific Chest Pain, Adult cp - General Headache Without Cause cp - Aspirin and Your Heart cp Forms: - Medication Reconciliation Form cp - Antibiotic Education cp - Prescription Opioid Use cp - Patient Portal Instructions cp - Leadership Thank You Letter cp Prescriptions: - Ibuprofen 800 mg Oral Tablet - take 1 tablet ORAL route every 8 hours As needed take with food; 30 tablet; cp Refills: 0, Product Selection Permitted Signatures: Dispatcher [employer] EDMS Moreno Fisher MD MD rn Clark Hutchins PA PA cp David Alonzo, RN RN jb4 Dulce Anthony RN RN jj7 Corrections: (The following items were deleted from the chart) 06/01 19:30 19:30 BASIC METABOLIC PANEL+C.LAB.BRZ ordered. EDMS EDMS 19:30 19:30 CBC+H.LAB.BRZ ordered. EDMS EDMS 19:30 19:30 MAGNESIUM+C.LAB.BRZ ordered. EDMS EDMS 19:30 19:30 PROTIME (+INR)+COAG.LAB.BRZ ordered. EDMS EDMS 19:30 19:30 Troponin High Sensitivity+C.LAB.BRZ ordered. EDMS EDMS 19:31 19:30 Chest Single View+RAD.RAD.BRZ ordered. EDMS EDMS
--- NOTE | 2023-06-02 23:29 | ER ---
Nurse's Notes [facility] Name: David Chang Age: 38 yrs Sex: Male : 1985 Arrival Date: 06/02/2023 Time: 19:06 Bed 18 Private MD: Diagnosis: Headache;Chest pain, unspecified;Hypertensive heart disease without heart failure Presentation: 06/01 19:22 Chief complaint: Patient states: I have a headache that started 3 days ago and jb4 sometimes radiates into my neck. I was short of breath yesteday but not anymore. Coronavirus screen: At this time, the client does not indicate any symptoms associated with coronavirus-19. Ebola Screen: No symptoms or risks identified at this time. Initial Sepsis Screen: Does the patient meet any 2 criteria? No. Patient's initial sepsis screen is negative. Does the patient have a suspected source of infection? No. Patient's initial sepsis screen is negative. Risk Assessment: Do you want to hurt yourself or someone else? Patient reports no desire to harm self or others. Onset of symptoms was June 02, 2023. Transition of care: patient was not received from another setting of care. 19:22 Method Of Arrival: Ambulatory jb4 19:22 Acuity: BLAYNE 3 jb4 Triage Assessment: 19:26 General: Appears in no apparent distress. comfortable, Behavior is calm, cooperative, jb4 appropriate for age. Pain: Complains of pain in top of head Pain radiates to neck Pain currently is 6 out of 10 on a pain scale. Pain began 2-3 days ago. Neuro: Level of Consciousness is awake, alert, obeys commands, Oriented to person, place, time, situation. Cardiovascular: Patient's skin is warm and dry. Respiratory: Airway is patent Respiratory effort is even, unlabored, Respiratory pattern is regular, symmetrical. Derm: Skin is intact, Skin is pink, warm \T\ dry. Musculoskeletal: Circulation, motion, and sensation intact. Range of motion: intact in all extremities. Historical: - Allergies: 19:26 No Known Allergies; jb4 - Home Meds: 19:26 lisinopril 10 mg Oral tab 1 tab once daily [Active]; jb4 - PMHx: 19:26 High Cholesterol; Hypertension; jb4 - PSHx: 19:26 lower back; jb4 - Immunization history:: Adult Immunizations up to date. - Infectious Disease History:: Denies. - Social history:: Smoking status: Patient denies any tobacco usage or history of. Screenin:50 [facility] ED Fall Risk Assessment (Adult) History of falling in the last 3 months, jj7 including since admission No falls in past 3 months (0 pts) Confusion or Disorientation No (0 pts) Intoxicated or Sedated No (0 pts) Impaired Gait No (0 pts) Mobility Assist Device Used No (0 pt) Altered Elimination No (0 pt) Score/Fall Risk Level 0 - 2 = Low Risk Oriented to surroundings, Maintained a safe environment, Educated pt \T\ family on fall prevention, incl call for assistance when getting out of bed. Abuse screen: Denies threats or abuse. Nutritional screening: No deficits noted. Tuberculosis screening: No symptoms or risk factors identified. Assessment: 19:50 General: Appears in no apparent distress. comfortable, Behavior is calm, cooperative, jj7 appropriate for age. Pain: Complains of pain in head. Neuro: Reports headache. Vital Signs: 19:22 BP 164 / 103; Pulse 87; Resp 16; Temp 97.1(TE); Pulse Ox 100% on R/A; Weight 106.59 kg jb4 (R); Height 5 ft. 7 in. (R); Pain 6/10; 20:31 BP 148 / 92; Pulse 76; Resp 17; Pulse Ox 100% ; jj7 21:30 BP 156 / 94; Pulse 74; Resp 16; Pulse Ox 98% ; Pain 0/10; jj7 22:40 BP 144 / 91; Pulse 67; Resp 16; Pulse Ox 99% ; Pain 0/10; jj7 23:30 BP 150 / 99; Pulse 70; Resp 21; Temp 98.3; Pulse Ox 98% ; Pain 0/10; jj7 19:22 Body Mass Index 36.80 (106.59 kg, 170.18 cm) jb4 19:22 Pain Scale: Adult jb4 21:30 Pain Scale: Adult jj7 22:40 Pain Scale: Adult jj7 23:30 Pain Scale: Adult jj7 ED Course: 19:10 Patient arrived in ED. mg5 19:19 Clark Hutchins PA is PHCP. cp 19:19 Moreno Fisher MD is Attending Physician. cp 19:26 Triage completed. jb4 19:26 Arm band placed on right wrist. jb4 19:32 Dulce Anthony, RN is Primary Nurse. jj7 19:48 EKG done, by technician plant and maintenance. reviewed by Clark KEEN. oe 19:50 Patient has correct armband on for positive identification. Bed in low position. Call jj7 light in reach. Provided Education on: USE OF CALL SOTO. Lights dimmed. 19:50 No provider procedures requiring assistance completed. jj7 20:02 CT Head Brain wo Cont In Process Unspecified. EDMS 20:10 XRAY Chest (1 view) In Process Unspecified. EDMS 20:43 Missed attempt(s): 20 gauge Bleeding controlled, band aid applied, catheter tip intact. oe 20:45 Basic Metabolic Panel Sent. jj7 20:45 CBC with Diff Sent. jj7 20:45 Magnesium Sent. jj7 20:45 PT-INR Sent. jj7 20:45 Troponin HS Sent. jj7 20:58 Inserted saline lock: 22 gauge in right hand, using aseptic technique. jj7 23:13 Troponin High Sensitivity: 3 hr repeat Sent. jj7 23:28 Wilfrido Dorado MD is Referral Physician. cp 23:37 IV discontinued, intact, bleeding controlled, No redness/swelling at site. Pressure jj7 dressing applied. Administered Medications: 21:05 Drug: Ketorolac IVP 15 mg IVP once Route: IVP; Site: right hand; jj7 21:48 Follow up: Response: Pain is decreased jj7 21:06 Drug: metoCLOPramide IVP 10 mg IVP once; over 1 to 2 minutes Route: IVP; Site: right [facility] hand; 21:49 Follow up: Response: Marked relief of symptoms; Pain is decreased jj7 21:06 Drug: diphenhydrAMINE IVP 25 mg IVP once Route: IVP; Site: right hand; jj7 21:49 Follow up: Response: Marked relief of symptoms; Pain is decreased jj7 21:06 Drug: NS 0.9% IV 1000 ml IV at 999 ml/hr Per protocol; 1000 mL bolus Route: IV; Rate: jj7 999 ml/hr; Site: right hand; 22:14 Follow up: IV Status: Completed infusion jj7 Medication: 19:50 VIS not applicable for this client. jj7 Outcome: 23:28 Discharge ordered by . vivek 23:37 Discharged to home ambulatory, johnathon 23:37 Condition: improved 23:37 Discharge instructions given to patient, Instructed on discharge instructions, follow up and referral plans. medication usage, Demonstrated understanding of instructions, follow-up care, medications, Prescriptions given X 1, 23:38 Patient left the ED. jj7 Signatures: Dispatcher [employer] EDMS Clark Hutchins PA PA cp Bryson, James, RN RN jb4 Yeyo Xiong Juwairiyah, RN RN jj7 Florinda Mai mg5 Corrections: (The following items were deleted from the chart) 19:33 19:22 Pulse 87bpm; Resp 16bpm; Pulse Ox 100% RA; 106.59 kg Reported; Height 5 ft. 7 in. jb4 Reported; BMI: 36.8; Pain 6/10, Adult; jb4 20:45 20:43 Missed attempt(s): 20 gauge Bleeding controlled, band aid applied, catheter tip oe intact. oe
[2023-06-03 00:34] VITALS: BP 150/99; TEMP 98.3; O2SAT 98
== END 2023-06-02 23:38 | disposition home or self-care (01) ==
LOC: ER 19:06
DX: R51.9 Headache, unspecified (principal); R07.9 Chest pain, unspecified; I11.9 Hypertensive heart disease without heart failure
CPT/HCPCS: 36415; 70450; 71045; 80048; 83735; 84484; 85025; 85610; 93005; 96361; 96374; 96375; 99284; J1200; J2765; J7030

== ENCOUNTER 2023-10-02 09:32 | Emergency (ER) | payer SELFPAY ==
--- OUTSIDE RECORDS SUMMARY | 2023-10-02 09:35 | XMS REPORT | Continuity of Care Document ---
Author Name Unknown Address [address] [facility] [address] [place] [address] [facility] thconnect Address [address] [facility] [address] [place] [address] Care Team Providers Care Hat Braider Name Role Phone Unavailable Unavailable Unavailable Encounters Start Date/Time End Date/Time Encounter Type Admission Type Attending Clinicians Care Facility Care Department Encounter ID Source 2022-12-03 13:34:16 2022-12-03 13:34:16 Outpatient [facility] S[facility] [id number] 2022-11-13 09:35:49 2022-11-13 09:35:49 Outpatient [facility] S[facility] [id number] 2022-05-29 15:58:44 2022-05-29 15:58:44 Outpatient [facility] SFA [id number] 2021-12-04 10:59:36 2021-12-04 10:59:36 Outpatient [facility] SFA [id number] Results Test Description Test Time Test Comments Results Result Co mments Source LIPID [id number] 05:04:38* Test Item Value Reference Range Interpretation [...] SPECIMENS. FOR MOREINFORMATION, SEE CLIENT ANNOUNCEMENT AT [email or web address]://[email or web address] [email or web address] [email or web address] /CalcLDL-C RISK RATIO LDL/HDL (test code = 2238) 8.20 RATIO <3.55 H COMPREHENSIVE METABOLIC [id number] 05:04:38* Test Item Value Reference Range Interpretation Comme nts GLUCOSE (test code = 2217) 96 MG/DL 70-99 BUN (test code = 2207) 9 MG/DL 6-20 CREATININE (test code = 2214) 1.01 MG/DL 0.80-1.40 eGFR (2020 CKD-EPI) (test co de = 17096) 98 ML/MIN/1.73 >60 CALC BUN/CREAT (test code = 2235) 9 RATIO 6-28 SODIUM (test code = 223) 140 MEQ/L 133-146 POTASSIUM (test code = 2228) 4.4 MEQ/L 3.5-5.4 CHLORIDE (test code = 2215) 101 MEQ/L 95-107 CARBON DIOXIDE (test code = 2206) 24 MEQ/L 19-31 CALCIUM (test code = 2209) 9.6 MG/DL 8.5-10.5 PROTEIN, TOTAL (test code = 2229) 7.4 G/DL 6.1-8.3 ALBUMIN (test code = 2201) 4.7 G/DL 3.5-5.2 CALC GLOBULIN (test code = 2240) 2.7 G/DL 1.9-3.7 CALC A/G RATIO (test code = 2234) 1.7 RATIO 1.0-2.6 BILIRUBIN, TOTAL (test code = 2206) 0.7 MG/DL <=1.2 ALKALINE PHOSPHATASE (test code = 2204) 81 U/L 40-117 AST (test code = 2218) 56 U/L 9-50 H ALT (test code = 2219) 125 U/L 5-50 H CBC W/AUTO DIFF WITH [id number] 03:36:02* Test Item Value Reference Range Interpretation [...] = 1065) 0.0 /100 WBC'S See_Comment [Automated [employer] ge] The system which generated this result [...] 0.00-0.10 ABS NUCLEATED RBCS (test code = 29599) 0.00 K/UL 0.00-0.11 PROTHROMBIN TIME (PT)2022-11-14 02:49:27* Test Item Value Reference Range Interpretation Comme nts PROTHROMBIN TIME (PT) (test code = 1402) 13.1 SECONDS 12.5-14.7 INR (test code = 91504) 1.0 SEE BELOW CURRENT RECOMMENDATIONS ARE FOR AN INR OF 2.0-3.0 FOR ALL PATIENTS ON VITAMIN K ANTAGONISTS, EXCEPT THOSE WITH PROSTHETIC HEART VALVES, FOR WHOM INR OF 2.5-3.5 IS RECOMMENDED. UNLESS OTHERWISE INDICATED, ALL TESTING PERFORMED AT [facility] [address] [place] [id number] CARD ROOM MANAGER: JASKARAN WALKER M.D. [place] NUMBER [id number] [place] [id number] LIPID [id number] 05:20:02* Test Item Value Reference Range Interpretation [...] SPECIMENS. FOR MOREINFORMATION, SEE CLIENT ANNOUNCEMENT AT [email or web address] /CalcLDL-C RISK RATIO LDL/HDL (test code = 2238) 9.06 RATIO <3.55 H COMPREHENSIVE METABOLIC [id number] 05:20:02* Test Item Value Reference Range Interpretation Comme nts GLUCOSE (test code = 2217) 94 MG/DL 70-99 BUN (test code = 2208) 12 MG/DL 6-20 CREATININE (test code = 2214) 0.94 MG/DL 0.80-1.40 eGFR (2020 CKD-EPI) (test code = 60204) 108 ML/MIN/1.73 >60 CALC BUN/CREAT (test code = 2235) 13 RATIO 6-28 SODIUM (test code = 2231) 138 MEQ/L 133-146 POTASSIUM (test code = [...] H UNLESS OTHERWISE INDICATED, ALL TESTING PERFORMED [facility] [address] [place] [address] CARD ROOM MANAGER: YONI GOLDBERG M.D. CLIA NUMBER [id number] [place]. [id number]
--- NOTE | 2023-10-02 09:52 | EDPHYS ---
Physician Documentation [facility] Name: David Chang Age: 38 yrs Sex: Male : 1985 Arrival Date: 10/02/2023 Time: 09:32 Bed 14 Private MD: ED Physician Gurjit Medel HPI: 10/01 09:49 This 38 yrs old Male presents to ER via Unassigned with complaints of rash. ec2 09:50 Patient arrives today for evaluation of a rash. States that he has had history of staph ec2 infections, has had a rash ongoing and worsening for the past couple days, at the suprapubic region. No fevers or chills, nausea or vomiting.. Historical: - Allergies: :58 No Known Allergies; dd2 - Home Meds: :58 lisinopril 10 mg Oral tab 1 tab once daily [Active]; dd2 - PMHx: 09:58 High Cholesterol; Hypertension; dd2 - PSHx: 09:58 lower back; dd2 - Immunization history:: Adult Immunizations unknown. - Infectious Disease History:: Denies. - Social history:: Smoking status: Reported history of juuling and/or vaping. ROS: 09:50 Constitutional: as per hpi ec2 Exam: 09:50 Constitutional: GEN: NAD Head: atraumatic Eyes: EOMI Ears: External ears are ec2 normal. CV: regular rate LUNGS: no respiratory distress ABD: non-distended SKIN: Scant erythema noted to the suprapubic region approximately 3 cm in size. No fluctuance, no crepitus appreciated., No ecchymosis. MSK: no evidence of trauma Vital Signs: 09:57 BP 126 / 87; Pulse 84; Resp 16; Pulse Ox 98% ; dd2 10:08 BP 132 / 82; Pulse 80; Resp 16; Pulse Ox 98% ; dd2 MDM: 09:45 Patient medically screened. ec2 09:50 Data reviewed: vital signs. ED course: Patient arrives today for evaluation of a skin ec2 rash. Examination remarkable for skin findings as above. Will start the patient on antibiotics. Suspect cellulitis. Considered other processes such as abscess, necrotizing fasciitis. Will discharge home. Return precautions given.. Administered Medications: 10:08 Drug: Trimethoprim-Sulfamethoxazole PO (160 mg-800 mg (DS) 1 tablet PO once Route: PO; dd2 10:09 Follow up: Response: Medication administered at discharge. dd2 Disposition Summary: 10/02/23 09:52 Discharge Ordered Notes: Location: Home ec2 Condition: Stable ec2 Diagnosis - Cellulitis of groin ec2 Followup: ec2 - With: Private Physician - When: - Reason: Re-evaluation by your physician Discharge Instructions: - Discharge Summary Sheet ec2 - Cellulitis, Adult ec2 Forms: - Medication Reconciliation Form ec2 - Antibiotic Education ec2 - Prescription Opioid Use ec2 - Patient Portal Instructions ec2 - Leadership Thank You Letter ec2 Prescriptions: - Bactrim DS 800-160 mg Oral Tablet - take 1 tablet ORAL route every 12 hours for 7 days; 14 tablet; Refills: 0, ec2 Product Selection Permitted Signatures: Gurjit Medel MD MD ec2 RICH ECHAVARRIA RN RN dd2
[2023-10-02] MEDS ORDERED: SMZ./TMP. 800/160 MG TABLET ONE (10:03)
--- NOTE | 2023-10-02 10:10 | ER ---
Nurse's Notes [facility] Name: David Chang Age: 38 yrs Sex: Male : 1985 Arrival Date: 10/02/2023 Time: 09:32 Bed 14 Private MD: Diagnosis: Cellulitis of groin Presentation: 10/01 09:57 Chief complaint: Patient states: Pt here for abscess to groin. Coronavirus screen: At dd2 this time, the client does not indicate any symptoms associated with coronavirus-19. Ebola Screen: No symptoms or risks identified at this time. Initial Sepsis Screen: Does the patient meet any 2 criteria? No. Patient's initial sepsis screen is negative. Does the patient have a suspected source of infection? No. Patient's initial sepsis screen is negative. Risk Assessment: Do you want to hurt yourself or someone else? Patient reports no desire to harm self or others. Onset of symptoms is unknown. 09:57 Method Of Arrival: Ambulatory dd2 09:57 Acuity: BLAYNE 5 dd2 Triage Assessment: 09:58 General: Appears in no apparent distress. Behavior is calm, cooperative. Pain: Denies dd2 pain. EENT: No deficits noted. Neuro: No deficits noted. Cardiovascular: No deficits noted. Respiratory: No deficits noted. GI: No deficits noted. : No deficits noted. Derm: Wound noted Wound is red, raised Abscess located on suprapubic area. Musculoskeletal: No deficits noted. Historical: - Allergies: 09:58 No Known Allergies; dd2 - Home Meds: 09:58 lisinopril 10 mg Oral tab 1 tab once daily [Active]; dd2 - PMHx: 09:58 High Cholesterol; Hypertension; dd2 - PSHx: 09:58 lower back; dd2 - Immunization history:: Adult Immunizations unknown. - Infectious Disease History:: Denies. - Social history:: Smoking status: Reported history of juuling and/or vaping. Screenin:00 [facility] ED Fall Risk Assessment (Adult) History of falling in the last 3 months, dd2 including since admission No falls in past 3 months (0 pts) Confusion or Disorientation No (0 pts) Intoxicated or Sedated No (0 pts) Impaired Gait No (0 pts) Mobility Assist Device Used No (0 pt) Altered Elimination No (0 pt) Score/Fall Risk Level 0 - 2 = Low Risk. Abuse screen: Denies threats or abuse. Nutritional screening: No deficits noted. Tuberculosis screening: No symptoms or risk factors identified. Assessment: 10:00 Reassessment: see triage note. dd2 Vital Signs: 09:57 BP 126 / 87; Pulse 84; Resp 16; Pulse Ox 98% ; dd2 10:08 BP 132 / 82; Pulse 80; Resp 16; Pulse Ox 98% ; dd2 ED Course: 09:36 Patient arrived in ED. ec2 09:36 Gurjit Medel MD is Attending Physician. ec2 09:55 RICH ECHAVARRIA, SKYLER is Primary Nurse. dd2 09:58 Triage completed. dd2 09:58 Arm band placed on right wrist. Patient placed in an exam room, on a stretcher, on dd2 oxygen, Patient notified of wait time. 10:00 Patient has correct armband on for positive identification. Bed in low position. Call dd2 light in reach. Side rails up X 1. Provided Education on: medication. 10:00 No provider procedures requiring assistance completed. Patient did not have IV access dd2 during this emergency room visit. Administered Medications: 10:08 Drug: Trimethoprim-Sulfamethoxazole PO (160 mg-800 mg (DS) 1 tablet PO once Route: PO; dd2 10:09 Follow up: Response: Medication administered at discharge. dd2 Medication: 10:00 VIS not applicable for this client. dd2 Outcome: 09:52 Discharge ordered by . ec2 10:08 Discharged to home ambulatory, dd2 10:08 Condition: stable 10:08 Discharge instructions given to patient, Instructed on discharge instructions, follow up and referral plans. medication usage, Demonstrated understanding of instructions, follow-up care, medications, Prescriptions given X 1, 10:09 Patient left the ED. dd2 Signatures: Gurjit Medel MD MD ec2 RICH ECHAVARRIA, RN RN dd2
[2023-10-02 10:13] VITALS: O2SAT 98
[2023-10-02 10:14] VITALS: BP 132/82
== END 2023-10-02 10:09 | disposition home or self-care (01) ==
LOC: ER 09:32
DX: L03.314 Cellulitis of groin (principal)
CPT/HCPCS: 99284

== ENCOUNTER 2024-01-04 17:13 | Emergency (ER) | payer SELFPAY ==
--- OUTSIDE RECORDS SUMMARY | 2024-01-04 17:16 | XMS REPORT | Continuity of Care Document ---
Author Name Unknown Address [address] [facility] [address] [place] [address] [facility] thconnect Address [address] [facility] [address] [place] [address] Care Team Providers Care Cognos Lead Name Role Phone Unavailable Unavailable Unavailable Encounters Start Date/Time End Date/Time Encounter Type Admission Type Attending Clinicians Care Facility Care Department Encounter ID Source 2022-12-03 13:34:16 2022-12-03 13:34:16 Outpatient [facility] [id number] 2022-11-13 09:35:49 2022-11-13 09:35:49 Outpatient [facility] [id number] 2022-05-29 15:58:44 2022-05-29 15:58:44 Outpatient [facility] [id number] 2021-12-04 10:59:36 2021-12-04 10:59:36 Outpatient [facility] [id number] Results Test Description Test Time Test Comments Results Result Co mments Source COMPREHENSIVE METABOLIC [id number] 05:04:38* Test Item Value Reference Range Interpretation Comme nts GLUCOSE (test code = 2217) 96 MG/DL 70-99 BUN (test code = 2208) 9 MG/DL 6-20 CREATININE (test code = 2214) 1.01 MG/DL 0.80-1.40 eGFR (2020 CKD-EPI) (test co de = 31989) 98 ML/MIN/1.73 >60 CALC BUN/CREAT (test code = 2235) 9 RATIO 6-28 SODIUM (test code = 2231) 140 MEQ/L 133-146 POTASSIUM (test code = 2228) 4.4 MEQ/L 3.5-5.4 CHLORIDE (test code = 2214) 101 MEQ/L 95-107 CARBON DIOXIDE (test code = 2205) 24 MEQ/L 19-31 CALCIUM (test code = 2208) 9.6 MG/DL 8.5-10.5 PROTEIN, TOTAL (test code = 2228) 7.4 G/DL 6.1-8.3 ALBUMIN (test code = 2200) 4.7 G/DL 3.5-5.2 CALC GLOBULIN (test code = 2240) 2.7 G/DL 1.9-3.7 CALC A/G RATIO (test code = 2233) 1.7 RATIO 1.0-2.6 BILIRUBIN, TOTAL (test code = 2206) 0.7 MG/DL <=1.2 ALKALINE PHOSPHATASE (test code = 2203) 81 U/L 40-117 AST (test code = 2217) 56 U/L 9-50 H ALT (test code = 2218) 125 U/L 5-50 H LIPID [id number] 05:04:38* Test Item Value Reference Range Interpretation Comme nts CHOLESTEROL (test code = 0) 377 MG/DL <200 H TRIGLYCERIDES (test code = 2) 326 MG/DL <150 H HDL CHOLESTEROL (test code = 2219) 35 MG/DL >39 L CALC LDL CHOL (test code = 2236) 287 MG/DL <100 H NOTE: CALCULATED LDL IS BASED ON YESI-COOPER METHOD WHICHINCLUDES ADJUSTABLE TRIGLYCERIDE:VLDL CHOLESTEROL RATIO.THIS FACTOR VARIES BY MEASURED TRIGLYCERIDE AND NON-HDLCHOLESTEROL CONCENTRATIONS WITH INCREASED CALCULATED LDL SEENIN HIGHER TRIGLYCERIDE OR LOWER NON-HDL SPECIMENS. FOR MOREINFORMATION, SEE CLIENT ANNOUNCEMENT AT [email or web address] /CalcLDL-C RISK RATIO LDL/HDL (test code = 2238) 8.20 RATIO <3.55 H CBC W/AUTO DIFF WITH [id number] 03:36:02* Test Item Value Reference Range Interpretation [...] = 1065) 0.0 /100 WBC'S See_Comment [Automated [employer] ge] The system which generated this result [...] 0.00-0.10 ABS NUCLEATED RBCS (test code = 35118) 0.00 K/UL 0.00-0.11 PROTHROMBIN TIME (PT)2022-11-14 02:49:27* Test Item Value Reference Range Interpretation Comme nts PROTHROMBIN TIME (PT) (test code = 1402) 13.1 SECONDS 12.5-14.7 INR (test code = 96661) 1.0 SEE BELOW CURRENT RECOMMENDATIONS ARE FOR AN INR OF 2.0-3.0 FOR ALL PATIENTS ON VITAMIN K ANTAGONISTS, EXCEPT THOSE WITH PROSTHETIC HEART VALVES, FOR WHOM INR OF 2.5-3.5 IS RECOMMENDED. UNLESS OTHERWISE INDICATED, ALL TESTING PERFORMED AT [facility] [address] [place] [address] MANAGER RETIREMENT: JASKARAN WALKER M.D. IA NUMBER [id number] [facility] [place] [id number] LIPID [id number] 05:20:02* Test Item Value Reference Range Interpretation [...] SPECIMENS. FOR MOREINFORMATION, SEE CLIENT ANNOUNCEMENT AT [email or web address] /CalcLDL-C RISK RATIO LDL/HDL (test code = 2238) 9.06 RATIO <3.55 H COMPREHENSIVE METABOLIC [id number] 05:20:02* Test Item Value Reference Range Interpretation Comme nts GLUCOSE (test code = 2217) 94 MG/DL 70-99 BUN (test code = 2208) 12 MG/DL 6-20 CREATININE (test code = 2214) 0.94 MG/DL 0.80-1.40 eGFR (2020 CKD-EPI) (test code = 27405) 108 ML/MIN/1.73 >60 CALC BUN/CREAT (test code [...] H UNLESS OTHERWISE INDICATED, ALL TESTING PERFORMED [facility] [address] [place] [address] MANAGER RETIREMENT: YONI GOLDBERG M.D. CLIA NUMBER [id number] [facility] [place]. [id number]
--- NOTE | 2024-01-04 18:09 | RAD REPORT ---
EXAM: CT brain without contrast HISTORY: head injury COMPARISON: None TECHNIQUE: Multiple contiguous axial images were obtained and a CT of the brain without contrast. Sag ittal and coronal reformats were performed. One or more of the following dose reduction techniques were used: Automated exposure control, adjust ment of the mA and/or kV according to patient size, and/or iterative reconstruction. FINDINGS: No evidence of hydrocephalus, intracranial hemorrhage, or extra-axial fluid collection. The brain is normal in morphology. No evidence of midline shift or areas of brain edema. The calvarium is intact. Mild mucosal thickening right maxillary antrum. The paranasal sinuses and ma stoids are otherwise clear. IMPRESSION: No evidence of acute intracranial abnormality. EXAM: CT of the cervical spine without contrast HISTORY: Neck pain, injury head injury TECHNIQUE: Multiple contiguous axial images were obtained in a CT of the cervical spine without contr ast. Sagittal and coronal reformats were performed. FINDINGS: The vertebral bodies demonstrate normal height and alignment. No evidence of acute fracture or subluxation.. No degenerative changes are present. No prevertebral soft tissue swelling is seen. The posterior facets are well aligned. Normal alignment of the skull base with the cervical spine is seen. The lung apices are unremarkable. IMPRESSION: No evidence of acute osseous abnormality of the cervical spine.
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
[2024-01-04 22:11] VITALS: BP 135/98; TEMP 98.3; O2SAT 99
== END 2024-01-04 18:40 | disposition home or self-care (01) ==
LOC: ER 17:13
DX: S07.8XXA Crushing injury of other parts of head, initial encounter (principal); S06.0X0A Concussion without loss of consciousness, initial encounter
CPT/HCPCS: 70450; 72125; 99281

== ENCOUNTER 2024-09-18 16:05 | Emergency (ER) | payer SELFPAY ==
--- OUTSIDE RECORDS SUMMARY | 2024-09-18 16:11 | XMS REPORT | Continuity of Care Document ---
Author Name Unknown Address [address] [place] [address] Efrem. [address] [place] [address] [facility] Address [address] [facility] Efrem. [address] [place] [address] Care Team Providers Care Sr. Social Media & Mobile Manager Name Role Phone Watson LEROY, Merlene Primary Care Physician Medications Ordered Medication Name Filled Medication Name Start Date Stop Date Current Medication? Ordering Clinician Indication Dosage Frequency Signature (SIG) Comments Components Source allopurinol 300 mg tablet 07-14 00:00: 00 Yes 1mg Hung Graf indomethaci n ER 75 mg capsule,ext ended release 07-14 00:00: 00 Yes 1mg Hung Graf TAKE 1 CAPSULE TWICE DAILY. 2022-02 00:00: 00 Yes 100 Hung Graf TAKE 1 TABLET DAILY. 2022-02 00:00: 00 Yes 10 Hungelizabeth Graf TAKE 1 TABLET DAILY. 2022-02 00:00: 00 Yes 160 Hung Graf TAKE 1 TABLET BY MOUTH DAILY 2022-02 00:00: 00 Yes 40 Hungelizabeth Graf TWO SPRAYS EACH NOSTRIL TWICE A DAY 11-01 00:00: 00 Yes Hung Sivakumar Graf APPLY TO LEFT NOSTRIL TWICE A DAY 11-01 00:00: 00 Yes Hung Graf TAKE 1 TABLET AT BEDTIME. 05-29 00:00: 00 12-05 00:00 :00 No 10 Hung Sivakumar Graf TAKE 1 TABLET BY MOUTH DAILY 05-29 00:00: 00 12-05 00:00 :00 No 40 Hung Sivakumar Graf TAKE 1 TABLET DAILY. 05-29 00:00: 00 12-05 00:00 :00 No 160 Hung Graf TAKE 5 ML EVERY 4 TO 6 HOURS NEEDED. 05-29 00:00: 00 12-05 00:00 :00 No [id number] Hung Graf TAKE 2 TABLETS ON DAY 1 THEN TAKE 1 TABLET A DAY FOR 4 DAYS. 05-29 00:00: 00 12-05 00:00 :00 No 250 Hung Graf Dose Unknown 2020-02 00:00: 00 Yes Hung Graf Dose Unknown 2020-02 00:00: 00 Yes Hung Graf amlodipine 5 mg tablet 2020-02 00:00: 00 Yes 1mg Hung Graf lisinopril 40 mg tablet 2020-02 00:00: 00 Yes 1mg Hung Graf lovastatin 40 mg tablet 2020-02 00:00: 00 Yes 1mg Hung Graf prednisone 10 mg tablet 2020-02 00:00: 00 Yes 1mg Hung Graf amoxicillin 875 mg-potassiu terri clavulanate 125 mg tablet 2020-02 00:00: 00 Yes 1mg Hung Graf lisinopril 40 mg tablet 07-28 00:00: 00 Yes 1mg Hung Graf amlodipine 5 mg tablet 07-28 00:00: 00 Yes 1mg Hung Graf atorvastati n 20 mg tablet 07-28 00:00: 00 Yes 1mg Hung Graf amlodipine 5 mg tablet 2019-02 00:00: 00 Yes 1mg Hung Graf lisinopril 40 mg tablet 2019-02 00:00: 00 Yes 1mg Hung Graf atorvastati n 20 mg tablet 2019-02 00:00: 00 Yes 1mg Hung Graf ProAir HFA 90 mcg/actuati on aerosol inhaler 2019-02 00:00: 00 Yes 2mcg/ac tuation Hung Graf Tessalon Perles 100 mg capsule 2019-02 00:00: 00 Yes 1mg Hung Graf atorvastati n 20 mg tablet 0 20 00:00: 00 Yes 1mg Hung Graf losartan 100 mg-hydrochl orothiazide 25 mg tablet 0 06-28 00:00: 00 Yes 1mg Hung Graf amlodipine 5 mg tablet 0 06-28 00:00: 00 Yes 1mg Hung Graf losartan 100 mg-hydrochl orothiazide 25 mg tablet 0 14 00:00: 00 Yes 1mg Hung Graf losartan 100 mg-hydrochl orothiazide 25 mg tablet 0 08 00:00: 00 Yes 1mg Hung Graf amlodipine 5 mg tablet 0 03-16 00:00: 00 Yes 1mg Hung Graf losartan 100 mg tablet 0 03-16 00:00: 00 Yes 1mg Hung Graf losartan 100 mg tablet 2018-02 00:00: 00 Yes 1mg Hung Graf amlodipine 5 mg tablet 2018-02 00:00: 00 Yes 1mg Hung Graf gabapentin 300 mg capsule 2018-02 00:00: 00 Yes 1mg Hung Graf gabapentin 300 mg capsule 08-26 00:00: 00 Yes 1mg Hung Graf amlodipine 5 mg tablet 07-29 00:00: 00 Yes 1mg Hung Graf gabapentin 300 mg capsule 0 07-29 00:00: 00 Yes 1mg Hung Graf gabapentin 300 mg capsule 0 07-24 00:00: 00 Yes 1mg Hung Graf aspirin 81 mg chewable tablet 06-30 00:00: 00 Yes 1mg Hung Graf amlodipine 5 mg tablet 06-30 00:00: 00 Yes 1mg Hung Graf gabapentin 300 mg capsule 06-30 00:00: 00 Yes 1mg Hung Graf lisinopril 20 mg tablet 03-18 00:00: 00 Yes 1mg Hung Graf lisinopril 20 mg tablet 2017-02 00:00: 00 Yes 2mg Hung Graf lisinopril 20 mg tablet 2017-02 00:00: 00 Yes 1mg Hung Graf prednisone 20 mg tablet 2017-02 00:00: 00 Yes mg Hung Graf Immunizations Ordered Immunization Name Filled Immunization Name Date Status Comments Source Tdap Tdap 2019-07-21 00:00:00 Completed Hung Graf Vital Signs Vital Name Observation Time Observation Value Comments S ource Respiratory Rate 2024-07-14 14:08:00 18.00 /min Hung F Homar BP Systolic 2024-07-14 14:08:00 138 mm[Hg] Step hen F Homar BP Diastolic 2024-07-14 14:08:00 80 mm[Hg] Efrem phen F Homar Weight Measured 2024-07-14 14:08:00 232.00 pounds Hung F Homar Height Measured 2024-07-14 14:08:00 67.00 inches Hung F Homar Body Temperature 2024-07-14 14:08:00 98.00 degrees Hung F Homar Heart Rate 2024-07-14 14:08:00 82.00 /min Fatoumata en F Homar BP Systolic 2022-12-03 13:46:00 144 mm[Hg] Step hen F Homar BP Diastolic 2022-12-03 13:46:00 96 mm[Hg] Efrem phen F Homar Weight Measured 2022-12-03 13:46:00 232.80 pounds Hung F Homar Height Measured 2022-12-03 13:46:00 66.00 inches Hung Graf Body Temperature 2022-12-03 13:46:00 98.20 degrees Hung F Homar Heart Rate 2022-12-03 13:46:00 58.00 /min Fatoumata en F Homar Respiratory Rate 2022-12-03 13:46:00 18.00 /min Hung F Homar BP Systolic 2022-11-13 09:39:00 124 mm[Hg] Step hen F Homar BP Diastolic 2022-11-13 09:39:00 83 mm[Hg] Efrem phen F Homar Weight Measured 2022-11-13 09:39:00 242.20 pounds Hung F Homar Height Measured 2022-11-13 09:39:00 66.00 inches Hung F Homar Body Temperature 2022-11-13 09:39:00 98.20 degrees Hung F Homar Heart Rate 2022-11-13 09:39:00 67.00 /min Fatoumata en F Homar Respiratory Rate 2022-11-13 09:39:00 18.00 /min Hung F Homar BP Systolic 2022-05-29 16:05:00 125 mm[Hg] Step hen F Homar BP Diastolic 2022-05-29 16:05:00 80 mm[Hg] Efrem phen F Homar Weight Measured 2022-05-29 16:05:00 248.60 pounds Hung F Homar Height Measured 2022-05-29 16:05:00 66.00 inches Hung F Homar Body Temperature 2022-05-29 16:05:00 98.30 degrees Hung F Homar Heart Rate 2022-05-29 16:05:00 82.00 /min Fatoumata en F Homar Respiratory Rate 2022-05-29 16:05:00 19.00 /min Hung F Homar BP Systolic 2021-12-04 11:05:00 122 mm[Hg] Step hen F Homar BP Diastolic 2021-12-04 11:05:00 85 mm[Hg] Efrem phen F Homar Weight Measured 2021-12-04 11:05:00 235.80 pounds Hung F Homar Height Measured 2021-12-04 11:05:00 66.00 inches Hung F Homar Body Temperature 2021-12-04 11:05:00 98.20 degrees Hung F Homar Heart Rate 2021-12-04 11:05:00 70.00 /min Fatoumata en F Homar Respiratory Rate 2021-12-04 11:05:00 Hung F Homar BP Systolic 2021-03-15 11:47:00 134 mm[Hg] Step hen F Homar BP Diastolic 2021-03-15 11:47:00 82 mm[Hg] Efrem phen F Homar Weight Measured 2021-03-15 11:47:00 244.80 pounds Hung F Homar Height Measured 2021-03-15 11:47:00 66.00 inches Hung F Homar Body Temperature 2021-03-15 11:47:00 97.00 degrees Hung F Homar Heart Rate 2021-03-15 11:47:00 83.00 /min Fatoumata en F Homar Respiratory Rate 2021-03-15 11:47:00 16.00 /min Hung F Homar BP Systolic 2020-12-05 13:05:00 128 mm[Hg] Step hen F Homar BP Diastolic 2020-12-05 13:05:00 84 mm[Hg] Efrem phen F Homar Weight Measured 2020-12-05 13:05:00 241.20 pounds Hung F Homar Height Measured 2020-12-05 13:05:00 66.00 inches Hung F Homar Body Temperature 2020-12-05 13:05:00 98.20 degrees Hung F Homar Heart Rate 2020-12-05 13:05:00 71.00 /min Fatoumata en F Homar Respiratory Rate 2020-12-05 13:05:00 16.00 /min Hung F Homar BP Systolic 2020-07-29 14:00:00 139 mm[Hg] Step hen F Homar BP Diastolic 2020-07-29 14:00:00 92 mm[Hg] Efrem phen F Homar Weight Measured 2020-07-29 14:00:00 248.60 pounds Hung F Homar Height Measured 2020-07-29 14:00:00 66.00 inches Hung F Homar Body Temperature 2020-07-29 14:00:00 97.90 degrees Hung F Homar Heart Rate 2020-07-29 14:00:00 81.00 /min Fatoumata en F Homar Respiratory Rate 2020-07-29 14:00:00 Hung F Homar BP Systolic 2020-07-28 15:57:00 139 mm[Hg] Step hen F Homar BP Diastolic 2020-07-28 15:57:00 92 mm[Hg] Efrem phen F Homar Weight Measured 2020-07-28 15:57:00 248.60 pounds Hung F Homar Height Measured 2020-07-28 15:57:00 66.00 inches Hung F Homar Body Temperature 2020-07-28 15:57:00 97.90 degrees Hung F Homar Heart Rate 2020-07-28 15:57:00 81.00 /min Fatoumata en F Homar Respiratory Rate 2020-07-28 15:57:00 Hung F Homar BP Systolic 2019-07-21 14:33:00 134 mm[Hg] Step hen F Homar BP Diastolic 2019-07-21 14:33:00 87 mm[Hg] Efrem phen F Homar Weight Measured 2019-07-21 14:33:00 232.00 pounds Hung F Homar Height Measured 2019-07-21 14:33:00 66.00 inches Hung Graf Body Temperature 2019-07-21 14:33:00 98.80 degrees Hung Graf Heart Rate 2019-07-21 14:33:00 85.00 /min Fatoumata Graf Respiratory Rate 2019-07-21 14:33:00 Hung Graf Encounters Start Date/Time End Date/Time Encounter Type [facility] Encounter ID Source 2024-07-14 13:58:49 2024-07-14 13:58:49 Outpatient [facility] [id number] Hung Graf 2024-07-14 00:00:00 2024-07-14 00:00:00 Outpatient Visit [facility] [id number] Hung Graf 2022-12-03 13:34:16 2022-12-03 13:34:16 Outpatient [facility] [id number] Hung Graf 2022-11-13 09:35:49 2022-11-13 09:35:49 Outpatient [facility] [id number] Hung Graf 2022-05-29 15:58:44 2022-05-29 15:58:44 Outpatient [facility] [id number] Hung Graf 2021-12-04 10:59:36 2021-12-04 10:59:36 Outpatient [facility] [id number] Hung Graf Results Test Description Test Time Test Comments Results Result Co mments Source CT/NG, TMA, [id number] 00:00:00* Test Item Value Reference Range Interpretation Comme nts CHLAMYDIA, NAAT, URINE (test code = 93965) NEGATIVE GONORRHEA, NAAT, URINE (test code = 32607) NEGATIVE Hung GrafLIPID [id number] 05:04:38* Test Item Value Reference Range Interpretation [...] SPECIMENS. FOR MOREINFORMATION, SEE CLIENT ANNOUNCEMENT AT [email or web address] RISK RATIO LDL/HDL (test code = 223) 8.20 RATIO <3.55 H COMPREHENSIVE METABOLIC [id number] 05:04:38* Test Item Value Reference Range Interpretation Comme nts GLUCOSE (test code = 7) 96 MG/DL 70-99 BUN (test code = 2207) 9 MG/DL 6-20 CREATININE (test code = 221) 1.01 MG/DL 0.80-1.40 eGFR (2020 CKD-EPI) (test co de = 42964) 98 ML/MIN/1.73 >60 CALC BUN/CREAT (test code [...] RATIO 1.0-2.6 BILIRUBIN, TOTAL (test code = 220) 0.7 MG/DL <=1.2 ALKALINE PHOSPHATASE (test code = 2204) 81 U/L 40-117 AST (test code = 2218) 56 U/L 9-50 H ALT (test code = 2219) 125 U/L 5-50 H CBC W/AUTO DIFF WITH [id number] 03:36:02* Test Item Value Reference Range Interpretation [...] = 1065) 0.0 /100 WBC'S See_Comment [Automated [employer] ge] The system which generated this result [...] 0.00-0.10 ABS NUCLEATED RBCS (test code = 65039) 0.00 K/UL 0.00-0.11 PROTHROMBIN TIME (PT)2022-11-14 02:49:27* Test Item Value Reference Range Interpretation Comme nts PROTHROMBIN TIME (PT) (test code = 1402) 13.1 SECONDS 12.5-14.7 INR (test code = 98342) 1.0 SEE BELOW CURRENT RECOMMENDATIONS ARE FOR AN INR OF 2.0-3.0 FOR ALL PATIENTS ON VITAMIN K ANTAGONISTS, EXCEPT THOSE WITH PROSTHETIC HEART VALVES, FOR WHOM INR OF 2.5-3.5 IS RECOMMENDED. UNLESS OTHERWISE INDICATED, ALL TESTING PERFORMED AT [facility] [address] [place] [address] CHEMICAL ENGINEERING TEACHER: JASKARAN WALKER M.D. [place] NUMBER [id number] [facility] [place]. [id number] PROTHROMBIN TIME (PT)2022-11-14 00:00:00* Test Item Value Reference Range Interpretation Comme nts PROTHROMBIN TIME (PT) (test code = 1402) 13.1 SECONDS INR (test code = 21892) 1.0 Hung [facility] [id number] 00:00:00* Test Item Value Reference Range Interpretation Comme nts WBC (test code = 1001) 5.8 K/UL RBC (test code = 1002) 5.70 M/UL HEMOGLOBIN (test code = 1003) 15.5 G/DL HEMATOCRIT (test code = 1004) 46.1 % MCV (test code = 1005) 80.9 fL MCH (test code = 1006) 27.2 PG MCHC (test code = 1007) 33.6 G/DL RDW (test code = 1038) 12.9 % NEUTROPHILS (test code = 1008) 50.0 % LYMPHOCYTES (test code = 1010) 38.8 % MONOCYTES (test code = 1011) 7.5 % EOSINOPHILS (test code = 1012) 2.9 % BASOPHILS (test code = 1013) 0.3 % IMMATURE GRANULOCYTES (test code = 1036) 0.5 % NUCLEATED RBCS (test code = 1065) 0.0 /100WBC'S PLATELET COUNT (test code = 1015) 304 K/UL ABSOLUTE NEUTROPHILS (test c ode = 1066) 2.91 K/UL ABSOLUTE LYMPHOCYTES (test c ode = 1067) 2.26 K/UL ABSOLUTE MONOCYTES (test cod e = 1068) 0.44 K/UL ABSOLUTE EOSINOPHILS (test c ode = 1040) 0.17 K/UL ABSOLUTE BASOPHILS (test cod e = 1069) 0.02 K/UL ABS IMMATURE GRANULOCYTES (t est code = 1020) 0.03 K/UL ABS NUCLEATED RBCS (test cod e = 59017) 0.00 K/UL Hung F AustinLIPID [id number] 00:00:00* Test Item Value Reference Range Interpretation Comme nts CHOLESTEROL (test code = 2210) 377 MG/DL TRIGLYCERIDES (test code = 2232) 326 MG/DL HDL CHOLESTEROL (test code = 2220) 35 MG/DL CALC LDL CHOL (test code = 2237) 287 MG/DL RISK RATIO LDL/HDL (test cod e = 2238) 8.20 RATIO Hung GrafCOMPREHENSIVE METABOLIC [id number] 00:00:00* Test Item Value Reference Range Interpretation Comme nts GLUCOSE (test code = 2217) 96 MG/DL BUN (test code = 2208) 9 MG/DL CREATININE (test code = 2214) 1.01 MG/DL eGFR (2020 CKD-EPI) (test co de = 25373) 98 ML/MIN/1.73 CALC BUN/CREAT (test code = 2235) 9 RATIO SODIUM (test code = 2231) 140 MEQ/L POTASSIUM (test code = 2228) 4.4 MEQ/L CHLORIDE (test code = 2215) 101 MEQ/L CARBON DIOXIDE (test code = 2206) 24 MEQ/L CALCIUM (test code = 2209) 9.6 MG/DL PROTEIN, TOTAL (test code = 2229) 7.4 G/DL ALBUMIN (test code = 2201) 4.7 G/DL CALC GLOBULIN (test code = 2240) 2.7 G/DL CALC A/G RATIO (test code = 2234) 1.7 RATIO BILIRUBIN, TOTAL (test code = 2207) 0.7 MG/DL ALKALINE PHOSPHATASE (test code = 2204) 81 U/L AST (test code = 2218) 56 U/L ALT (test code = 2219) 125 U/L Hung GrafLIPID [id number] 05:20:02* Test Item Value Reference Range Interpretation [...] SPECIMENS. FOR MOREINFORMATION, SEE CLIENT ANNOUNCEMENT AT [email or web address] /CalcLDL-C RISK RATIO LDL/HDL (test code = 2237) 9.06 RATIO <3.55 H COMPREHENSIVE METABOLIC [id number] 05:20:02* Test Item Value Reference Range Interpretation Comme nts GLUCOSE (test code = 2216) 94 MG/DL 70-99 BUN (test code = 2207) 12 MG/DL 6-20 CREATININE (test code = 2213) 0.94 MG/DL 0.80-1.40 eGFR (2020 CKD-EPI) (test code = ) 108 ML/MIN/1.73 >60 CALC BUN/CREAT (test code = 5) 13 RATIO 6-28 SODIUM (test code = 2230) 138 MEQ/L 133-146 POTASSIUM (test code = 2228) 4.4 MEQ/L 3.5-5.4 CHLORIDE (test code = 2214) 99 MEQ/L 95-107 CARBON DIOXIDE (test code = 6) 23 MEQ/L 19-31 CALCIUM (test code = 220) 9.8 MG/DL 8.5-10.5 PROTEIN, TOTAL (test code = 222) 7.4 G/DL 6.1-8.3 ALBUMIN (test code = 2201) 4.5 G/DL 3.5-5.2 CALC GLOBULIN (test code = 2240) 2.9 G/DL 1.9-3.7 CALC A/G RATIO (test code = 2233) 1.6 RATIO 1.0-2.6 BILIRUBIN, TOTAL (test code = 2206) 0.6 MG/DL See_Comment [Automated me ssage] The system which generated this result transmitted reference range: <=1.2. The reference range was not used to interpret this result as normal/abnormal. ALKALINE PHOSPHATASE (test code = 2203) 72 U/L 40-117 AST (test code = 2218) 53 U/L 9-50 H ALT (test code = 2219) 109 U/L 5-50 H UNLESS OTHERWISE INDICATED, ALL TESTING PERFORMED [facility] [address] [place] [address] CHEMICAL ENGINEERING TEACHER: YONI GOLDBERG M.D. CLIA NUMBER [id number] [facility] [place]. [id number] LIPID [id number] 00:00:00* Test Item Value Reference Range Interpretation Comme nts CHOLESTEROL (test code = 2210) 392 MG/DL TRIGLYCERIDES (test code = 2232) 211 MG/DL HDL CHOLESTEROL (test code = 2220) 35 MG/DL CALC LDL CHOL (test code = 2237) 317 MG/DL RISK RATIO LDL/HDL (test cod e = 2238) 9.06 RATIO Hung GrafCOMPREHENSIVE METABOLIC [id number] 00:00:00* Test Item Value Reference Range Interpretation Comme nts GLUCOSE (test code = 2217) 94 MG/DL BUN (test code = 2208) 12 MG/DL CREATININE (test code = 2214) 0.94 MG/DL eGFR (2020 CKD-EPI) (test code = 23905) 108 ML/MIN/1.73 CALC BUN/CREAT (test code = 2235) 13 RATIO SODIUM (test code = 2231) 138 MEQ/L POTASSIUM (test code = 2228) 4.4 MEQ/L CHLORIDE (test code = 2215) 99 MEQ/L CARBON DIOXIDE (test code = 2206) 23 MEQ/L CALCIUM (test code = 2209) 9.8 MG/DL PROTEIN, TOTAL (test code = 2229) 7.4 G/DL ALBUMIN (test code = 2201) 4.5 G/DL CALC GLOBULIN (test code = 2240) 2.9 G/DL CALC A/G RATIO (test code = 2234) 1.6 RATIO BILIRUBIN, TOTAL (test code = 2207) 0.6 MG/DL ALKALINE PHOSPHATASE (test code = 2204) 72 U/L AST (test code = 2218) 53 U/L ALT (test code = 2219) 109 U/L Hung GrafLIPID [id number] 00:00:00* Test Item Value Reference Range Interpretation Comme nts CHOLESTEROL (test code = 2210) 345 MG/DL TRIGLYCERIDES (test code = 2232) 331 MG/DL HDL CHOLESTEROL (test code = 2220) 34 MG/DL CALC LDL CHOL (test code = 2237) 255 MG/DL RISK RATIO LDL/HDL (test cod e = 2238) 7.50 RATIO Hung GrafCBC W/AUTO [id number] 00:00:00* Test Item Value Reference Range Interpretation Comme nts WBC (test code = 1001) 6.8 K/UL RBC (test code = 1002) 5.79 M/UL HEMOGLOBIN (test code = 1003) 15.2 G/DL HEMATOCRIT (test code = 1004) 45.9 % MCV (test code = 1005) 79.3 fL MCH (test code = 1006) 26.3 PG MCHC (test code = 1007) 33.1 G/DL RDW (test code = 1038) 13.4 % NEUTROPHILS (test code = 1008) 55.3 % LYMPHOCYTES (test code = 1010) 36.4 % MONOCYTES (test code = 1011) 6.0 % EOSINOPHILS (test code = 1012) 1.8 % BASOPHILS (test code = 1013) 0.1 % IMMATURE GRANULOCYTES (test code = 1036) 0.4 % NUCLEATED RBCS (test code = 1065) 0.0 /100WBC'S PLATELET COUNT (test code = 1015) 295 K/UL ABSOLUTE NEUTROPHILS (test c ode = 1066) 3.74 K/UL ABSOLUTE LYMPHOCYTES (test c ode = 1067) 2.47 K/UL ABSOLUTE MONOCYTES (test cod e = 1068) 0.41 K/UL ABSOLUTE EOSINOPHILS (test c ode = 1040) 0.12 K/UL ABSOLUTE BASOPHILS (test cod e = 1069) 0.01 K/UL ABS IMMATURE GRANULOCYTES (t est code = 1020) 0.03 K/UL ABS NUCLEATED RBCS (test cod e = 32748) 0.00 K/UL Hung GrafCOMPREHENSIVE METABOLIC [id number] 00:00:00* Test Item Value Reference Range Interpretation Comme nts GLUCOSE (test code = 2217) 89 MG/DL BUN (test code = 2208) 12 MG/DL CREATININE (test code = 2214) 0.88 MG/DL eGFR AMER. (test cod e = 50514) 129 ML/MIN/1.73 eGFR NON- AMER. (test code = 80545) 111 ML/MIN/1.73 CALC BUN/CREAT (test code = 2235) 14 RATIO SODIUM (test code = 2231) 141 MEQ/L POTASSIUM (test code = 2228) 4.8 MEQ/L CHLORIDE (test code = 2215) 102 MEQ/L CARBON DIOXIDE (test code = 2206) 24 MEQ/L CALCIUM (test code = 2209) 9.8 MG/DL PROTEIN, TOTAL (test code = 2229) 7.8 G/DL ALBUMIN (test code = 2201) 4.6 G/DL CALC GLOBULIN (test code = 2240) 3.2 G/DL CALC A/G RATIO (test code = 2234) 1.4 RATIO BILIRUBIN, TOTAL (test code = 2207) 0.5 MG/DL ALKALINE PHOSPHATASE (test code = 2204) 85 U/L AST (test code = 2218) 40 U/L ALT (test code = 2219) 88 U/L Hung Shaver BerwynLIPID [id number] 00:00:00* Test Item Value Reference Range Interpretation Comme nts CHOLESTEROL (test code = 2210) 326 MG/DL TRIGLYCERIDES (test code = 2232) 613 MG/DL HDL CHOLESTEROL (test code = 2220) 30 MG/DL CALC LDL CHOL (test code = 2237) (NOTE) MG/DL RISK RATIO LDL/HDL (test cod e = 2238) (NOTE) RATIO Hung GrafCOMPREHENSIVE METABOLIC [id number] 00:00:00* Test Item Value Reference Range Interpretation Comme nts GLUCOSE (test code = 2217) 89 MG/DL BUN (test code = 2208) 16 MG/DL CREATININE (test code = 2214) 0.91 MG/DL eGFR AMER. (test cod e = 18431) 126 ML/MIN/1.73 eGFR NON- AMER. (test code = 59870) 109 ML/MIN/1.73 CALC BUN/CREAT (test code = 2235) 18 RATIO SODIUM (test code = 2231) 136 MEQ/L POTASSIUM (test code = 2228) 4.4 MEQ/L CHLORIDE (test code = 2215) 99 MEQ/L CARBON DIOXIDE (test code = 2206) 24 MEQ/L CALCIUM (test code = 2209) 10.1 MG/DL PROTEIN, TOTAL (test code = 2229) 7.9 G/DL ALBUMIN (test code = 2201) 4.8 G/DL CALC GLOBULIN (test code = 2240) 3.1 G/DL CALC A/G RATIO (test code = 2234) 1.5 RATIO BILIRUBIN, TOTAL (test code = 2207) 0.5 MG/DL ALKALINE PHOSPHATASE (test code = 2204) 92 U/L AST (test code = 2218) 60 U/L ALT (test code = 2219) 128 U/L Hung GrafSARS-CoV-2 (COVID-19) by RT-PCR (HIGH RISK)2020-01-02 00:00:00* Test Item Value Reference Range Interpretation Comme nts SARS-CoV-2 INTERPRETATION (test code = 46747) Negative SOURCE (test code = 88848) Nasal_Swab_in _VTM__ UTM Hung GrafHEMOGLOBIN [id number] 00:00:00* Test Item Value Reference Range Interpretation Comme nts HEMOGLOBIN A1c (test code = 13147) 5.7 % Hung GrafCOMPREHENSIVE METABOLIC [id number] 00:00:00* Test Item Value Reference Range Interpretation Comme nts GLUCOSE (test code = 2217) 103 MG/DL BUN (test code = 2208) 11 MG/DL CREATININE (test code = 2214) 0.94 MG/DL eGFR AMER. (test cod e = 55342) 122 ML/MIN/1.73 eGFR NON- AMER. (test code = 28875) 105 ML/MIN/1.73 CALC BUN/CREAT (test code = 2235) 12 RATIO SODIUM (test code = 2231) 140 MEQ/L POTASSIUM (test code = 2228) 4.5 MEQ/L CHLORIDE (test code = 2215) 99 MEQ/L CARBON DIOXIDE (test code = 2206) 26 MEQ/L CALCIUM (test code = 2209) 9.7 MG/DL PROTEIN, TOTAL (test code = 2229) 7.5 G/DL ALBUMIN (test code = 2201) 4.6 G/DL CALC GLOBULIN (test code = 2240) 2.9 G/DL CALC A/G RATIO (test code = 2234) 1.6 RATIO BILIRUBIN, TOTAL (test code = 2207) 0.3 MG/DL ALKALINE PHOSPHATASE (test code = 2204) 83 U/L AST (test code = 2218) 39 U/L ALT (test code = 2219) 72 U/L Hung GrafLIPID [id number] 00:00:00* Test Item Value Reference Range Interpretation Comme nts CHOLESTEROL (test code = 2210) 370 MG/DL TRIGLYCERIDES (test code = 2232) 520 MG/DL HDL CHOLESTEROL (test code = 2220) 30 MG/DL CALC LDL CHOL (test code = 2237) (NOTE) MG/DL RISK RATIO LDL/HDL (test cod e = 2238) (NOTE) RATIO Hung GrafCBC W/AUTO [id number] 00:00:00* Test Item Value Reference Range Interpretation Comme nts WBC (test code = 1001) 6.0 K/UL RBC (test code = 1002) 5.45 M/UL HEMOGLOBIN (test code = 1003) 15.2 G/DL HEMATOCRIT (test code = 1004) 43.8 % MCV (test code = 1005) 80.4 fL MCH (test code = 1006) 27.9 PG MCHC (test code = 1007) 34.7 G/DL RDW (test code = 1038) 13.2 % NEUTROPHILS (test code = 1008) 54.5 % LYMPHOCYTES (test code = 1010) 36.7 % MONOCYTES (test code = 1011) 7.3 % EOSINOPHILS (test code = 1012) 1.3 % BASOPHILS (test code = 1013) 0.2 % PLATELET COUNT (test code = 1015) 325 K/UL Hung GrafCOMPREHENSIVE METABOLIC [id number] 00:00:00* Test Item Value Reference Range Interpretation Comme nts GLUCOSE (test code = 2217) 88 MG/DL BUN (test code = 2208) 13 MG/DL CREATININE (test code = 2214) 0.99 MG/DL eGFR AMER. (test cod e = 02092) 116 ML/MIN/1.73 eGFR NON- AMER. (test code = 25137) 100 ML/MIN/1.73 CALC BUN/CREAT (test code = 2235) 13 RATIO SODIUM (test code = 2231) 140 MEQ/L POTASSIUM (test code = 2228) 4.5 MEQ/L CHLORIDE (test code = 2215) 97 MEQ/L CARBON DIOXIDE (test code = 2206) 27 MEQ/L CALCIUM (test code = 2209) 9.8 MG/DL PROTEIN, TOTAL (test code = 2229) 7.7 G/DL ALBUMIN (test code = 2201) 4.6 G/DL CALC GLOBULIN (test code = 2240) 3.1 G/DL CALC A/G RATIO (test code = 2234) 1.5 RATIO BILIRUBIN, TOTAL (test code = 2207) 0.5 MG/DL ALKALINE PHOSPHATASE (test code = 2204) 78 U/L AST (test code = 2218) 67 U/L ALT (test code = 2219) 150 U/L Hung Shaver HomarCOMPREHENSIVE METABOLIC [id number] 00:00:00* Test Item Value Reference Range Interpretation Comme nts GLUCOSE (test code = 2217) 113 MG/DL BUN (test code = 2208) 10 MG/DL CREATININE (test code = 2214) 0.86 MG/DL eGFR AMER. (test cod e = 99492) 132 ML/MIN/1.73 eGFR NON- AMER. (test code = 51172) 114 ML/MIN/1.73 CALC BUN/CREAT (test code = 2235) 12 RATIO SODIUM (test code = 2231) 141 MEQ/L POTASSIUM (test code = 2228) 4.2 MEQ/L CHLORIDE (test code = 2215) 102 MEQ/L CARBON DIOXIDE (test code = 2206) 24 MEQ/L CALCIUM (test code = 2209) 9.8 MG/DL PROTEIN, TOTAL (test code = 2229) 7.2 G/DL ALBUMIN (test code = 2201) 4.4 G/DL CALC GLOBULIN (test code = 2240) 2.8 G/DL CALC A/G RATIO (test code = 2234) 1.6 RATIO BILIRUBIN, TOTAL (test code = 2207) 0.5 MG/DL ALKALINE PHOSPHATASE (test code = 2204) 73 U/L AST (test code = 2218) 94 U/L ALT (test code = 2219) 201 U/L Hung Shaver HomarHEPATITIS PANEL, ACUTE [ADDED][id number] 00:00:00* Test Item Value Reference Range Interpretation Comme nts HEPATITIS A IgM (test code = 38780) NON-REACTIVE HEPATITIS B CORE IgM (test c ode = 4644) NON-REACTIVE HEPATITIS B SURF AG (test co de = 2484) NON-REACTIVE HEPATITIS C ANTIBODY (test c ode = 9791) NON-REACTIVE HCV INDEX (test code = 20770) 0.15 INTERPRETATION HEPATITIS A: (test code = 2552) (NOTE) INTERPRETATION HEPATITIS B: (test code = 08889) (NOTE) INTERPRETATION HEPATITIS C: (test code = 49139) (NOTE) Hung GrafCOMPREHENSIVE METABOLIC [id number] 00:00:00* Test Item Value Reference Range Interpretation Comme nts GLUCOSE (test code = 2217) 97 MG/DL BUN (test code = 2208) 9 MG/DL CREATININE (test code = 2214) 0.93 MG/DL eGFR AMER. (test cod e = 55742) 125 ML/MIN/1.73 eGFR NON- AMER. (test code = 64749) 108 ML/MIN/1.73 CALC BUN/CREAT (test code = 2235) 10 RATIO SODIUM (test code = 2231) 142 MEQ/L POTASSIUM (test code = 2228) 4.7 MEQ/L CHLORIDE (test code = 2215) 101 MEQ/L CARBON DIOXIDE (test code = 2206) 27 MEQ/L CALCIUM (test code = 2209) 9.5 MG/DL PROTEIN, TOTAL (test code = 2229) 7.5 G/DL ALBUMIN (test code = 2201) 4.4 G/DL CALC GLOBULIN (test code = 2240) 3.1 G/DL CALC A/G RATIO (test code = 2234) 1.4 RATIO BILIRUBIN, TOTAL (test code = 2207) 0.5 MG/DL ALKALINE PHOSPHATASE (test code = 2204) 91 U/L AST (test code = 2218) 112 U/L ALT (test code = 2219) 279 U/L Hung GrafLIPID [id number] 00:00:00* Test Item Value Reference Range Interpretation Comme nts CHOLESTEROL (test code = 2210) 338 MG/DL TRIGLYCERIDES (test code = 2232) 412 MG/DL HDL CHOLESTEROL (test code = 2220) 29 MG/DL CALC LDL CHOL (test code = 2237) NOTE MG/DL RISK RATIO LDL/HDL (test cod e = 2238) (NOTE) RATIO Hung GrafHEMOGLOBIN [id number] 00:00:00* Test Item Value Reference Range Interpretation Comme nts HEMOGLOBIN A1c (test code = 07279) 5.8 % Hung [id number] 00:00:00* Test Item Value Reference Range Interpretation Comme nts TSH, THIRD GENERATION (test code = 2821) 2.310 UIU/ML Hung GrafCOMPREHENSIVE METABOLIC [id number] 00:00:00* Test Item Value Reference Range Interpretation Comme nts GLUCOSE (test code = 2217) 106 MG/DL BUN (test code = 2208) 8 MG/DL CREATININE (test code = 2214) 0.79 MG/DL eGFR AMER. (test cod e = 59486) 138 ML/MIN/1.73 eGFR NON- AMER. (test code = 84068) 119 ML/MIN/1.73 CALC BUN/CREAT (test code = 2235) 10 RATIO SODIUM (test code = 2231) 142 MEQ/L POTASSIUM (test code = 2228) 4.0 MEQ/L CHLORIDE (test code = 2215) 98 MEQ/L CARBON DIOXIDE (test code = 2206) 29 MEQ/L CALCIUM (test code = 2209) 9.1 MG/DL PROTEIN, TOTAL (test code = 2229) 7.4 G/DL ALBUMIN (test code = 2201) 4.4 G/DL CALC GLOBULIN (test code = 2240) 3.0 G/DL CALC A/G RATIO (test code = 2234) 1.5 RATIO BILIRUBIN, TOTAL (test code = 2207) 0.5 MG/DL ALKALINE PHOSPHATASE (test code = 2204) 75 U/L AST (test code = 2218) 143 U/L ALT (test code = 2219) 389 U/L Hung GrafLIPID [id number] 00:00:00* Test Item Value Reference Range Interpretation Comme nts CHOLESTEROL (test code = 2210) 316 MG/DL TRIGLYCERIDES (test code = 2232) 266 MG/DL HDL CHOLESTEROL (test code = 2220) 23 MG/DL CALC LDL CHOL (test code = 2237) 240 MG/DL RISK RATIO LDL/HDL (test cod e = 2238) 10.43 RATIO Hung GrafCBC W/AUTO [id number] 00:00:00* Test Item Value Reference Range Interpretation Comme nts WBC (test code = 1001) 4.5 K/UL RBC (test code = 1002) 5.24 M/UL HEMOGLOBIN (test code = 1003) 14.0 G/DL HEMATOCRIT (test code = 1004) 41.0 % MCV (test code = 1005) 78.2 fL MCH (test code = 1006) 26.7 PG MCHC (test code = 1007) 34.1 G/DL RDW (test code = 1038) 12.7 % NEUTROPHILS (test code = 1008) 48.3 % LYMPHOCYTES (test code = 1010) 42.4 % MONOCYTES (test code = 1011) 7.8 % EOSINOPHILS (test code = 1012) 1.1 % BASOPHILS (test code = 1013) 0.4 % PLATELET COUNT (test code = 1015) 299 K/UL Hung Graf Notes Date/Time Note Provider Source [facility]
[2024-09-18] MEDS ORDERED: TETRACAINE HCL 0.5% 4ML OPTH ONE (16:25)
[2024-09-18] MEDS ORDERED: FLUORESCEIN SODIUM 1 MG/WRAP ONE (16:25)
--- NOTE | 2024-09-18 16:53 | ER ---
Nurse's Notes [facility] Name: David Chang Age: 39 yrs Sex: Male : 1985 Arrival Date: 09/18/2024 Time: 16:05 Bed 10 Private MD: Diagnosis: Ocular pain, left eye Presentation: 09/18 16:29 Chief complaint: Patient states: L eye redness s/p pine bark debris getting in eye. ll1 Coronavirus screen: Client denies travel out of the [place] in the last 14 days. At this time, the client does not indicate any symptoms associated with coronavirus-19. Ebola Screen: Patient denies travel to an Ebola-affected area in the 21 days before illness onset. Initial Sepsis Screen: Does the patient meet any 2 criteria? No. Patient's initial sepsis screen is negative. Does the patient have a suspected source of infection? No. Patient's initial sepsis screen is negative. Risk Assessment: Do you want to hurt yourself or someone else? Patient reports no desire to harm self or others. Onset of symptoms was September 18, 2024. 16:29 Method Of Arrival: Ambulatory ll1 16:29 Acuity: BLAYNE 4 ll1 Triage Assessment: 16:29 General: Appears uncomfortable, Behavior is calm, cooperative, appropriate for age. ll1 Pain: Complains of pain in left eye Quality of pain is described as aching. EENT: Eyes are tearing on outer aspect of conjuctiva of left eye, iris of left eye and inner aspect of conjunctiva of left eye Sclera/Cornea are reddened in outer aspect of conjuctiva of left eye, iris of left eye and inner aspect of conjunctiva of left eye Reports pain in left eye. Neuro: No deficits noted. Historical: - Allergies: 16:29 No Known Allergies; ll1 - PMHx: 16:29 High Cholesterol; Hypertension; gout; ll1 - PSHx: 16:29 lower back; ll1 - Immunization history:: Adult Immunizations up to date. - Infectious Disease History:: Denies. - Social history:: Smoking status: Patient denies any tobacco usage or history of. Screenin:59 [facility] ED Fall Risk Assessment (Adult) History of falling in the last 3 months, ll1 including since admission No falls in past 3 months (0 pts) Confusion or Disorientation No (0 pts) Intoxicated or Sedated No (0 pts) Impaired Gait No (0 pts) Mobility Assist Device Used No (0 pt) Altered Elimination No (0 pt) Score/Fall Risk Level 0 - 2 = Low Risk Maintained a safe environment, Hourly rounding (assess needs \T\ fall precautionary measures) done. Abuse screen: Denies threats or abuse. Nutritional screening: No deficits noted. Tuberculosis screening: No symptoms or risk factors identified. Assessment: 16:59 Reassessment: No changes from previously documented assessment. Patient and/or family ll1 updated on plan of care and expected duration. Pain level reassessed. Patient is alert, oriented x 3, equal unlabored respirations, skin warm/dry/pink. Vital Signs: 16:29 BP 118 / 77; Pulse 102; Resp 16; Temp 97.9; Pulse Ox 98% on R/A; Weight 103.42 kg; ll1 Height 5 ft. 8 in. ; Pain 1/10; 16:29 Body Mass Index 34.67 (103.42 kg, 172.72 cm) ll1 16:29 Pain Scale: Adult ll1 ED Course: 16:09 Patient arrived in ED. cj3 16:15 Singh Do FNP-C is PHCP. dr5 16:15 Lakeshia Fernandez is Attending Physician. dr5 16:30 Patient has correct armband on for positive identification. Provided Education on: ER ll1 procedures and process. 16:31 Triage completed. ll1 16:32 Arm band placed on Patient placed in an exam room, on a stretcher. ll1 16:59 Matheus Ortiz RN is Primary Nurse. ll1 16:59 No provider procedures requiring assistance completed. Patient did not have IV access ll1 during this emergency room visit. Administered Medications: 16:59 Drug: Tetracaine Ophthalmic Drops 0.5 % 1 drops Ophthalmic once Route: Ophthalmic; ll1 Site: left eye; 16:59 Follow up: Response: No adverse reaction ll1 16:59 Drug: Fluorescein Ophthalmic Strip 1 strip Ophthalmic once Route: Ophthalmic; Site: ll1 left eye; 16:59 Follow up: Response: No adverse reaction ll1 Medication: 17:01 VIS not applicable for this client. ll1 Outcome: 16:52 Discharge ordered by . dr5 16:59 Patient left the ED. ll1 17:00 Discharged to home ambulatory, ll1 17:00 Condition: stable 17:00 Discharge instructions given to patient, Instructed on discharge instructions, follow up and referral plans. Demonstrated understanding of instructions, follow-up care, Prescriptions given X 1, Signatures: Matheus Ortiz, RN RN ll1 Singh Do, TRANSIT MAN-C TRANSIT MAN-Cdr5 Neli Sky RN RN kb4 Annika Anthony cj3 Corrections: (The following items were deleted from the chart) 16:44 16:44 Inserted saline lock: 20 gauge in left antecubital area, using aseptic technique. kb4 Blood collected. Flushed with 10 mL NS kb4 17:01 17:00 Discharge instructions given to patient, Instructed on discharge instructions, ll1 follow up and referral plans. Demonstrated understanding of instructions, follow-up care, ll1
--- NOTE | 2024-09-18 16:53 | EDPHYS ---
Physician Documentation [facility] Name: David Chang Age: 39 yrs Sex: Male : 1985 Arrival Date: 09/18/2024 Time: 16:05 Bed 10 Private MD: ED Physician Lakeshia Fernandez HPI: 09/18 16:53 This 39 yrs old Male presents to ER via Ambulatory with complaints of Eye dr5 Problem - LT. 16:53 Onset: The symptoms/episode began/occurred acutely. Patient is a 39-year-old male with dr5 history of hypertension, hyperlipidemia coming in with possible foreign body in the left eye. Patient reports he was working outside and process padding on his eye. Patient reports that after he felt the pain he washed his eye out vigorously with water. Patient reports continued eye irritation to left side with tearing.. Historical: - Allergies: 16:29 No Known Allergies; ll1 - PMHx: 16:29 High Cholesterol; Hypertension; gout; ll1 - PSHx: 16:29 lower back; ll1 - Immunization history:: Adult Immunizations up to date. - Infectious Disease History:: Denies. - Social history:: Smoking status: Patient denies any tobacco usage or history of. ROS: 16:53 Constitutional: as per hpi dr5 Exam: 16:53 Constitutional: This is a well developed, well nourished patient who is awake, alert, dr5 and in no acute distress. Head/Face: Normocephalic, atraumatic. ENT: Nares patent. No nasal discharge, no septal abnormalities noted. Tympanic membranes are normal and external auditory canals are clear. Oropharynx with no redness, swelling, or masses, exudates, or evidence of obstruction, uvula midline. Mucous membranes moist. Neck: Trachea midline, no thyromegaly or masses palpated, and no cervical lymphadenopathy. Supple, full range of motion without nuchal rigidity, or vertebral point tenderness. No Meningismus. Chest/axilla: Normal chest wall appearance and motion. Nontender with no deformity. No lesions are appreciated. Cardiovascular: Regular rate and rhythm with a normal S1 and S2. Normal PMI, no JVD. No pulse deficits. Respiratory: Lungs have equal breath sounds bilaterally, clear to auscultation. No rales, rhonchi or wheezes noted. No increased work of breathing, no retractions or nasal flaring. Back: No spinal tenderness. No costovertebral tenderness. Full range of motion. Skin: Warm, dry with normal turgor. Normal color with no rashes, no lesions, and no evidence of cellulitis. MS/ Extremity: Pulses equal, no cyanosis. Neurovascular intact. Full, normal range of motion. Neuro: Awake and alert, GCS 15, oriented to person, place, time, and situation. Cranial nerves II-XII grossly intact. Motor strength 5/5 in all extremities. Sensory grossly intact. Cerebellar exam normal. Normal gait. 16:53 Eyes: Periorbital structures: appear normal, Pupils: no acute changes, equal, round, and reactive to light and accomodation, Extraocular movements: intact throughout, Conjunctiva: normal, Corneas: are normal, Sclera: no appreciated abnormality, Vital Signs: 16:29 BP 118 / 77; Pulse 102; Resp 16; Temp 97.9; Pulse Ox 98% on R/A; Weight 103.42 kg; ll1 Height 5 ft. 8 in. ; Pain 1/10; 16:29 Body Mass Index 34.67 (103.42 kg, 172.72 cm) ll1 16:29 Pain Scale: Adult ll1 Procedures: 16:53 Eye Exam: Tetracaine and fluorescein strip used during exam. No foreign body noted. No dr5 Flores sign. Patient negative for corneal abrasion. Visual Acuity: 20/20 L, 20/20R, and 20/20Both. MDM: 16:15 Medical Screening Exam initiated dr5 16:53 Differential diagnosis: Corneal abrasion of left eye. Corneal ulcer of left eye. dr5 Foreign body in left eye. Data reviewed: vital signs, nurses notes. Consideration of Admission/Observation Escalation of care including admission/observation considered. Concern admission patient found to have + Flores sign. I considered the following discharge prescriptions or medication management in the emergency department Medications were administered in the Emergency Department. See MAR. Care significantly affected by the following chronic conditions: Hypertension, Hyperlipidemia. Care significantly affected by the following Social Determinants of Health: Poor access to healthcare and/or lack of insurance, Poor access to transportation, Problems related to employment. Counseling: I had a detailed discussion with the patient and/or guardian regarding the historical points, exam findings, and any diagnostic results supporting the discharge/admit diagnosis, the presence of at least one elevated blood pressure reading (>120/80) during this emergency department visit, the need for outpatient follow up, for definitive care, an opthalmologist, to return to the emergency department if symptoms worsen or persist or if there are any questions or concerns that arise at home. Medication response: Tetracaine. Response to treatment: the patient's symptoms have resolved after treatment, the patient's condition has returned to base line. Admission orders: after a detailed discussion of the patient's condition and case, the admit orders are written by me. Special discussion: I discussed with the patient/guardian in detail that at this point there is no indication for admission to the hospital. It is understood, however, that if the symptoms persist or worsen the patient needs to return immediately for re-evaluation. Based on the history and exam findings, there is no indication for further emergent testing or inpatient evaluation. I discussed with the patient/guardian the need to see the opthamologist for further evaluation of the symptoms. ED course: No foreign body noted on exam. Will give patient antibiotics for left eye. Recommended patient follow-up with ophthalmology on Friday. All questions are. Strict ER precautions given.. Administered Medications: 16:59 Drug: Tetracaine Ophthalmic Drops 0.5 % 1 drops Ophthalmic once Route: Ophthalmic; ll1 Site: left eye; 16:59 Follow up: Response: No adverse reaction ll1 16:59 Drug: Fluorescein Ophthalmic Strip 1 strip Ophthalmic once Route: Ophthalmic; Site: ll1 left eye; 16:59 Follow up: Response: No adverse reaction ll1 Disposition: 17:15 Co-signature as Attending Physician, Lakeshia Fernandez I agree with the assessment ci and plan of care. I reviewed the patient's care provided by the Advanced Practice Provider and agree with the diagnosis and treatment plan. Disposition Summary: 09/18/24 16:52 Discharge Ordered Notes: Location: Home dr5 Condition: Stable dr5 Diagnosis - Ocular pain, left eye dr5 Followup: dr5 - With: Emergency Department - When: As needed - Reason: Worsening of condition Followup: dr5 - With: Private Physician - When: 1 - 2 days - Reason: Recheck today's complaints, Continuance of care, Re-evaluation by your physician Discharge Instructions: - Discharge Summary Sheet dr5 - Eye Foreign Body dr5 Forms: - Medication Reconciliation Form dr5 - Antibiotic Education dr5 - Patient Portal Instructions dr5 - Leadership Thank You Letter dr5 Prescriptions: - Ocuflox 0.3 % Ophthalmic drops - instill 2 drops OPHTHALMIC route every 6 hours for 7 days; 30 milliliter; dr5 Refills: 0, Product Selection Permitted Signatures: Matheus Ortiz, RN RN ll1 IheonunekwuLakeshia Dustin, CIVILIAN TECHNICIAN-C CIVILIAN TECHNICIAN-Cdr5
[2024-09-18 17:04] VITALS: BP 118/77; TEMP 97.9; O2SAT 98
== END 2024-09-18 16:59 | disposition home or self-care (01) ==
LOC: ER 16:05
DX: H57.12 Ocular pain, left eye (principal)
CPT/HCPCS: 99283